=== PATIENT | male | born 1985 | race Caucasian/White ===

== ENCOUNTER 2016-11-23 07:08 | Emergency (ER) | payer SELFPAY ==
[2016-11-23] MEDS ORDERED: Nitroglycerin TAB 0.4 MG* 0.4 MG TAB SL ONE (07:26)
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
[2016-11-23] MEDS ORDERED: Aspirin Low Dose CHEW TAB* 81 MG PO ONE (07:38)
[2016-11-23 07:57] VITALS: BP 154/92
[2016-11-23] MEDS ORDERED: Aspirin Low Dose CHEW TAB* 81 MG PO SCH (09:00)
== END 2016-11-23 07:54 | disposition short-term general hospital (02) ==
LOC: UCEAST 07:08
DX: R07.89 Other chest pain (principal); I50.9 Heart failure, unspecified; I45.10 Unspecified right bundle-branch block; I10 Essential (primary) hypertension; F17.210 Nicotine dependence, cigarettes, uncomplicated
CPT/HCPCS: 93005; 99213; A9270-GY; G0463

== ENCOUNTER 2016-11-23 08:13 | Emergency (ER) | payer MEDICAID ==
[2016-11-23] MEDS ORDERED: Metoprolol Tartrate TAB* 25 MG PO ONE (09:41)
[2016-11-23] MEDS ORDERED: Ketorolac INJ* 30 MG/ML 1 ML VIAL IV PUSH ONE (09:41)
[2016-11-23 09:48] LABS: Hematocrit 39 % (42-52); Hemoglobin 13.2 g/dl (14.0-18.0); Mean Corpuscular HGB Conc 34 g/dl (31-36); Mean Corpuscular Hemoglobin 28 pg (27-31); Mean Corpuscular Volume 84 fL (80-94); Mean Platelet Volume 8 um3 (7.4-10.4); Red Blood Count 4.66 10^6/ul (4.0-5.4); Red Cell Distribution Width 15 % (10.5-15); White Blood Count 9.5 10^3/ul (3.5-10.8)
[2016-11-23 10:00] LABS: Troponin I 0.01 ng/mL (<0.04)
[2016-11-23 10:01] LABS: Albumin 4.3 g/dL (3.2-5.2); BUN/Creatinine Ratio 18.7 (8-20); Calcium 9.4 mg/dL (8.6-10.3); EGFR African American 124.2 (>60); EGFR Non-African American 96.6 (>60); Globulin 3.4 g/dL (2-4); Potassium 3.6 mmol/L (3.5-5.0); Total Bilirubin 0.7 mg/dL (0.2-1.0); Total Protein 7.7 g/dL (6.4-8.9)
[2016-11-23] MEDS ORDERED: Iohexol 350* (CONTRAST) 500 ML MDV IV ONE (10:34)
--- NOTE | 2016-11-23 10:37 | RAD ---
Indication: Chest pain. History of congestive heart failure and asthma. Comparison: January 25, 2015 chest radiograph. June 15, [address] June 15, 2010 chest radiograph. Technique: Upright AP 0950 hours Report: 1.5 cm irregularly margined density at the LEFT upper lung zone corresponds to costochondral calcification based on correlation with prior CT without concern. No pulmonary infiltrate, pleural effusion, pneumothorax. The heart, pulmonary vasculature, and mediastinal contours are unremarkable. IMPRESSION: No evidence for acute intrathoracic disease.
--- NOTE | 2016-11-23 10:55 | RAD ---
INDICATION: Chest pain. Short of breath. Evaluate for pulmonary embolus. COMPARISON: CTA chest June 15, 2010 TECHNIQUE: Axial source images were obtained from the thoracic inlet to the hemidiaphragms following administration of [address] angiographic technique was utilized. Coronal and sagittal reconstructed images were acquired. CHEST FINDINGS: Neck/thyroid: The visualized neck to include the thyroid appear normal. Chest wall: There are no acute abnormalities of the bony thorax or chest wall. There is no supraclavicular, infraclavicular, or axillary lymphadenopathy. Lungs : There are no pulmonary parenchymal masses or infiltrates. The pulmonary interstitium appears normal. There are no endobronchial lesions. Cardiomediastinal structures: There is adequate opacification of the pulmonary arterial tree. There is no CT evidence of acute pulmonary embolic disease. The heart is normal in size. There is no pericardial effusion. There is no evidence of aortic aneurysm or dissection. There is no mediastinal or hilar adenopathy. The esophagus appears normal. Pleura : There are no pleural-based masses or effusions. Other: There is an estimated 70% diameter stenosis of the proximal left renal artery. The kidneys are symmetric in size and there is prompt perfusion of each kidney. IMPRESSION: 1. No CT evidence of acute pulmonary embolic disease. Lungs clear. 2. Incidental finding of estimated 70% diameter stenosis proximal left renal artery
[2016-11-23] MEDS ORDERED: Lisinopril TAB* 10 MG PO ONE (11:20)
[2016-11-23] MEDS ORDERED: Lisinopril TAB* 10 MG ONE (11:33)
[2016-11-23 14:17] VITALS: BP 110/80
[2016-11-24 10:12] LABS: Call Hep C TO BE CALLED
--- NOTE | 2016-11-26 18:37 | ED ---
Teodoro Rivera Billy, scribed for Joe King MD on 11/23/16 at 0928 . HPI Chest Pain - HPI Summary HPI Summary: Patient is a 31 year-old male coming to [facility] from [facility] for evaluation of constant left-sided chest tightness radiating to the left armpit since 0530 today. He states that the tightness is reproducible when moving the left arm and with palpation. He also reports mild shortness of breath. Denies any calf pain or swelling. Patient denies any dizziness at this time. However, he states that about 1 week ago, he had an episode where he had a "panic attack," felt dizzy, and fell to the ground and had convulsions without any LOC. He also had similar chest tightness at that time, which lasted for 2 hours before spontaneously resolving after sleep. He has felt fatigued for the last 2 months. He reports that he had intercourse this morning at 0430. He also notes that he has been experiencing unusual erectile dysfunction in the last 2 months. Denies any recent travel. Patient is a smoker and admits to former heroin, cocaine, and methamphetamine use, although he denies drug use in the last 6 months. - History of Current Complaint Chief Complaint: EDChestPainROMI Time Seen by Provider: 11/23/16 08:15 Hx Obtained From: Patient Onset/Duration: Started Hours Ago Time of Onset: 05:30 Timing: Constant Initial Severity: Moderate Current Severity: Moderate Pain Intensity: 1 Pain Scale Used: 0-10 Numeric Chest Pain Location: Left Anterior Chest Pain Radiates: Yes Chest Pain Radiates To:: Other - left armpit Character: Tightness Aggravating Factor(s): Movement, Other: - palpation Alleviating Factor(s): Nothing Associated Signs and Symptoms: Positive: Chest Pain, Shortness of Breath - mild. Negative: Dizziness, Calf Pain/Swelling - Allergy/Home Medications Allergies/Adverse Reactions: Allergies Allergy/AdvReac Type Severity Reaction Status Date / Time No Known Allergies Allergy Verified 11/25/15 12:53 PMH/Surg Hx/FS Hx/Imm Hx Endocrine/Hematology History: Denies: Hx Diabetes, Hx Thyroid Disease Cardiovascular History: Reports: Hx Congestive Heart Failure Denies: Hx Hypertension Respiratory History: Reports: Hx Asthma - as a child Denies: Hx Chronic Obstructive Pulmonary Disease (COPD) GI History: Denies: Hx Ulcer - Surgical History Surgery Procedure, Year, and Place: 2013 vasectomy Infectious Disease History: No Infectious Disease History: Denies: Hx Clostridium Difficile, Hx Hepatitis, Hx Human Immunodeficiency Virus (HIV), Hx of Known/Suspected MRSA, Hx Shingles, Hx Tuberculosis, Hx Known/ Suspected VRE, Hx Known/Suspected VRSA, History Other Infectious Disease, Traveled Outside the [place] in Last 30 Days - Family History Known Family History: Positive: Cardiac Disease - Social History Alcohol Use: Rare Substance Use Type: Reports: None Substance Use Comment - Amount & Last Used: last use of heroin may 01, 2016 Smoking Status (MU): Heavy Every Day Tobacco Smoker Type: Cigarettes Amount Used/How Often: 1 ppd Length of Time of Smoking/Using Tobacco: 13 years Have You Smoked in the Last Year: Yes Review of Systems Positive: Fatigue Negative: Erythema Negative: Sore Throat Positive: Chest Pain Positive: Shortness Of Breath. Negative: Cough Negative: Abdominal Pain, Vomiting, Nausea Negative: dysuria, hematuria Negative: Myalgia, Edema Negative: Rash All Other Systems Reviewed And Are Negative: Yes Physical Exam - Summary Physical Exam Summary: Constitutional: Well-developed, Well-nourished, Alert. (-) Distressed Skin: Warm, Dry HENT: Normocephalic; Atraumatic Eyes: Conjunctiva normal Neck: Musculoskeletal ROM normal neck. (-) JVD, (-) Stridor, (-) Tracheal deviation Cardio: Rhythm regular, rate normal, Heart sounds normal; Intact distal pulses; The pedal pulses are 2+ and symmetric. Radial pulses are 2+ and symmetric. (-) Murmur Pulmonary/Chest wall: Effort normal. There is tenderness to the left lateral third, fourth, and fifth ribs. (-) Respiratory distress, (-) Wheezes, (-) Rales Abd: Soft, (-) Tenderness, (-) Distension, (-) Guarding, (-) Rebound Musculoskeletal: (-) Edema Lymph: (-) Cervical adenopathy Neuro: Alert, Oriented x3 Psych: Mood and affect Normal Triage Information Reviewed: Yes Vital Signs On Initial Exam: Initial Vitals Temp Pulse Resp BP Pulse Ox 99 F 76 9 142/97 98 11/23/16 08:14 11/23/16 08:14 11/23/16 08:14 11/23/16 08:14 11/23/16 08:14 Vital Signs Reviewed: Yes - [place] Coma Scale Coma Scale Total: 15 Diagnostics - Vital Signs Vital Signs Temp Pulse Resp BP Pulse Ox 11/23/16 08:16 99 F 83 16 144/91 99 11/23/16 08:14 99 F 76 9 142/97 98 - Laboratory Result Diagrams: 11/23/16 07:35 11/23/16 07:35 Lab Statement: Any lab studies that have been ordered have been reviewed, and results considered in the medical decision making process. - Radiology CXR Xray Interpretation: No Acute Changes Radiology Interpretation Completed By: Radiologist - CT CTA chest/thorax CT Interpretation Completed By: Radiologist - 1. No CT evidence of acute pulmonary embolic disease. Lungs clear. 2. Incidental finding of estimated 70% diameter stenosis proximal left renal artery - EKG 0810 EKG Interpretation: NSR 78 bpm, no STEMI 1121 EKG Interpretation: NSR 66 bpm, no STEMI Re-Evaluation - Re-Evaluation First Eval Re-Evaluation Time: 14:07 Comment: Labs and imaging reviewed. Plan for discharge and follow-up with PCP, cardiology, and nephrology discussed with the patient. He voiced an understanding. Chest Pain Course/Dx - Course Assessment/Plan: This patient is a 31 year-old male coming to the ED for evaluation of chest tightness. EKG shows NSR with no STEMI. CXR shows no acute disease. CTA of the chest shows no acute findings and an incidental finding of 70% diameter stenosis proximal left renal artery. Troponin #1 was 0.01 in the ED. Troponin #2 was 0.00. Patient will be discharged home to follow up with the [facility] physician referral service, cardiology, and nephrology. - Diagnoses Provider Diagnoses: Renal artery stenosis, Hypertension, reproducible chest pain, Erectile dysfunction - Provider Notifications Discussed Care Of Patient With: Abilio Allison NP (hospitalist) at 1130: patient will follow up with PCP Discharge - Discharge Plan Condition: Stable Disposition: HOME Prescriptions: Lisinopril TAB* [Prinivil TAB 5 MG*] 5 mg PO DAILY #14 tab Patient Education Materials: Chest Pain (ED) Forms: *Work Release Referrals: [facility] PHYSICIAN REFERRAL [Outside] Suze Hernandez MD [Medical Doctor] - Jermaine Heredia MD [Medical Doctor] - Additional Instructions: FOLLOW UP WITH THE PHYSICIAN REFERRAL SERVICE. IF YOU CANNOT BE SEEN IN THE NEXT THREE DAYS, VISIT THE [facility]. ADDITIONALLY, FOLLOW UP WITH DR. HEREDIA (NEPHROLOGY) AND DR. HERNANDEZ ( CARDIOLOGY). The documentation as recorded by the Teodoro lombardo Billy accurately reflects the service I personally performed and the decisions made by me, Joe King MD.
== END 2016-11-23 14:22 | disposition home or self-care (01) ==
LOC: ED 08:13
DX: I70.1 Atherosclerosis of renal artery (principal); I10 Essential (primary) hypertension; R07.9 Chest pain, unspecified; N52.9 Male erectile dysfunction, unspecified; I50.9 Heart failure, unspecified; F17.210 Nicotine dependence, cigarettes, uncomplicated
CPT/HCPCS: 36415; 71010; 71275; 80053; 80074; 83880; 84484; 85025; 86703; 93005; 99285; A9270-GY; J1885; Q9967

== ENCOUNTER 2016-12-01 20:04 | Emergency (ER) | payer MEDICAID ==
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
[2016-12-01] MEDS ORDERED: Tetan/Diph/Pertus SYR(Tdap)* 0.5 ML SYR(BOOSTRIX) use SYR IM ONE (21:36)
[2016-12-01] MEDS ORDERED: Morphine INJ* 4 MG/ML 1 ML SYRINGE IV ONE (22:04)
[2016-12-02 02:39] VITALS: BP 134/84
== END 2016-12-01 23:30 | disposition short-term general hospital (02) ==
LOC: ED 20:04
DX: T23.291A Burn of second degree of multiple sites of right wrist and hand, initial encounter (principal); T23.292A Burn of second degree of multiple sites of left wrist and hand, initial encounter; X08.8XXA Exposure to other specified smoke, fire and flames, initial encounter; Y92.9 Unspecified place or not applicable; I50.9 Heart failure, unspecified; Z23 Encounter for immunization; F17.210 Nicotine dependence, cigarettes, uncomplicated
CPT/HCPCS: 90471; 90715; 99283; J2270

== ENCOUNTER 2017-01-11 10:31 | Emergency (ER) | payer OTHER ==
--- NOTE | 2017-01-11 13:17 | UC ---
Throat Pain/Nasal Vinicio HPI - HPI Summary HPI Summary: Patient presents with low grade temp and sore throat x 6 days. He denies sick contacts. Denies cough, chest pain and pressure. He notes to using tylenol without relief of pain. Denies skin complaints or abdominal pain. Smoker. Otherwise healthy. Takes no medications and denies allergies. Denies difficultly swallowing or breathing. Pain does not radiate. - History of Current Complaint Chief Complaint: UCRespiratory Stated Complaint: SORE THROAT Time Seen by Provider: 01/11/17 12:30 Hx Obtained From: Patient Onset/Duration: Sudden Onset Severity: Moderate Pain Intensity: 6 Pain Scale Used: 0-10 Numeric Associated Signs & Symptoms: Positive: Other - odynophagia Related History: Smoking - Epiglottits Risk Factors Epiglottis Risk Factors: Negative - Allergies/Home Medications Allergies/Adverse Reactions: Allergies Allergy/AdvReac Type Severity Reaction Status Date / Time No Known Allergies Allergy Verified 01/11/17 10:45 PMH/Surg Hx/FS Hx/Imm Hx Previously Healthy: Yes Other History Of: Negative For: Hepatitis C - unknown for pt, with hep C - Surgical History Surgical History: Yes Surgery Procedure, Year, and Place: 2013 vasectomy - Family History Known Family History: Positive: Cardiac Disease - Social History Occupation: Employed Full-time Lives: With Family Alcohol Use: Rare Substance Use Type: None Substance Use Comment - Amount & Last Used: last use of heroin may 01, 2016 Smoking Status (MU): Heavy Every Day Tobacco Smoker Type: Cigarettes Amount Used/How Often: 1 ppd Length of Time of Smoking/Using Tobacco: 13 years Have You Smoked in the Last Year: Yes When Did the Patient Quit Smoking/Using Tobacco: 2 weeks ago Review of Systems Constitutional: Negative Skin: Negative Eyes: Negative ENT: Sore Throat Respiratory: Negative Cardiovascular: Negative Motor: Negative Neurovascular: Negative Musculoskeletal: Negative Neurological: Negative All Other Systems Reviewed And Are Negative: Yes Physical Exam Triage Information Reviewed: Yes Appearance: Well-Appearing, No Pain Distress, Well-Nourished Vital Signs: Initial Vital Signs Temp 98.2 F 01/11/17 10:42 Pulse Ox 98 01/11/17 10:42 Vital Signs Reviewed: Yes Eye Exam: Normal Eyes: Positive: Conjunctiva Clear ENT: Positive: Pharyngeal erythema, Tonsillar swelling, Tonsillar exudate Dental Exam: Normal Neck exam: Normal Neck: Positive: Supple, Nontender, No Lymphadenopathy Respiratory Exam: Normal Respiratory: Positive: Chest non-tender, Lungs clear Cardiovascular Exam: Normal Cardiovascular: Positive: RRR Musculoskeletal Exam: Normal Musculoskeletal: Positive: Strength Intact Neurological Exam: Normal Neurological: Positive: Alert Psychological: Positive: Normal Response To Family, Age Appropriate Behavior Skin Exam: Normal Throat Pain/Nasal Course/Dx - Course Course Of Treatment: Rapid strep positive. Penicillin given for rx. Encouraged cepacol tabs. Patient OK with discharge. Afebrile. - Differential Dx/Diagnosis Differential Diagnosis/HQI/PQRI: Laryngitis, Pharyngitis, Tonsillitis, URI Provider Diagnoses: STREP THROAT Discharge - Discharge Plan Condition: Stable Disposition: HOME Prescriptions: Penicillin VK TAB 500 MG(NF) [Penicillin VK 500 mg Tab(NF)] 500 mg PO BID #20 tab MDD 4 Patient Education Materials: Strep Throat (ED) Referrals: Yaw Bullock MD [Primary Care Provider] - Additional Instructions: Dx: Strep Throat You will need antibiotic medicine to treat your strep throat. Please take the antibiotic as directed. You should feel better within 2 to 3 days after you start antibiotics. You may return to work or school 24 hours after you start antibiotics. If you have any questions about your medications, please do no hesitate to call or talk with your pharmacist. How can I manage my symptoms? Use lozenges, ice, soft foods, or popsicles to soothe your throat. Drink juice, milk shakes, or soup if your throat is too sore to eat solid food. Drinking liquids can also help prevent dehydration. Gargle with salt water. Mix teaspoon salt in a 1 cup of warm water and gargle. This may help reduce swelling in your throat. Do not smoke. Nicotine and other chemicals in cigarettes and cigars can cause lung damage and make your symptoms worse. Ask your healthcare provider for information if you currently smoke and need help to quit. E-cigarettes or smokeless tobacco still contain nicotine. Talk to your healthcare provider before you use these products. How do I prevent the spread of strep throat? Wash your hands often. Use soap and water. Wash your hands after you use the bathroom, change a child's diapers, or sneeze. Wash your hands before you prepare or eat food. Do not share food or drinks. Replace your toothbrush after you have taken antibiotics for 24 hours.
== END 2017-01-11 12:49 | disposition home or self-care (01) ==
LOC: UCEAST 10:31
DX: J02.0 Streptococcal pharyngitis (principal); F17.210 Nicotine dependence, cigarettes, uncomplicated
CPT/HCPCS: 87651; 99212; G0463

== ENCOUNTER 2017-02-17 13:45 | Inpatient (IN) | payer OTHER ==
[2017-02-17] MEDS ORDERED: cefTRIAXone(*) 1 GM in NS 0.9% 50 ML* 50 ML IVPB ONE (15:39)
[2017-02-17] MEDS ORDERED: Acetaminophen TAB* 325 MG PO ONE ×2 (15:39→17:02)
[2017-02-17] MEDS ORDERED: NS 0.9% 1000 ML* 1,000 ML IV ONE ×2 (15:39→17:44)
[2017-02-17] MEDS ORDERED: Ketorolac INJ* 30 MG/ML 1 ML VIAL IV ONE (15:39)
--- NOTE | 2017-02-17 16:02 | RAD ---
Indication: Fever and dizziness for 3 days post camping trip. Comparison: November 23, 2016 CT and portable chest radiograph.. Technique: Upright AP 1600 hours Report: Costochondral calcification noted at the LEFT first rib. Clear lungs and pleural spaces. Negative for pneumothorax. The heart, pulmonary vasculature, and mediastinal contours are unremarkable. IMPRESSION: No evidence for acute intrathoracic disease.
[2017-02-17 16:18] LABS: Hematocrit 40 % (42-52); Hemoglobin 13.3 g/dl (14.0-18.0); Mean Corpuscular HGB Conc 33 g/dl (31-36); Mean Corpuscular Hemoglobin 28 pg (27-31); Mean Corpuscular Volume 83 fL (80-94); Mean Platelet Volume 8 um3 (7.4-10.4); Red Blood Count 4.79 10^6/ul (4.0-5.4); Red Cell Distribution Width 16 % (10.5-15)
--- NOTE | 2017-02-17 16:33 | RAD ---
HISTORY: Fever, dizziness COMPARISONS: July 08, 2011 TECHNIQUE: Multiple contiguous axial CT scans were obtained of the head without intravenous contrast. FINDINGS: HEMORRHAGE/INFARCT: There is no hemorrhage or acute infarct. MASSES/SHIFT: There is no mass or shift. EXTRA-AXIAL SPACES: There are no extra-axial fluid collections. SULCI AND VENTRICLES: The sulci and ventricles are normal in size and position for the patient's stated age. CEREBRUM: There are no focal parenchymal abnormalities. BRAINSTEM: There are no focal parenchymal abnormalities. CEREBELLUM: There are no focal parenchymal abnormalities. VESSELS: The vessels are grossly normal. PARANASAL SINUSES: The paranasal sinuses are clear. ORBITS: The orbits are unremarkable. BONES AND SOFT TISSUE: No bone or soft tissue abnormalities are noted. OTHER: None IMPRESSION: NO ACUTE INTRACRANIAL PATHOLOGY.
[2017-02-17 16:41] LABS: Albumin 3.9 g/dL (3.2-5.2); BUN/Creatinine Ratio 10.5 (8-20); C Reactive Protein 194.29 mg/L (< 5.00); Calcium 9.5 mg/dL (8.6-10.3); EGFR African American 105.3 (>60); EGFR Non-African American 81.9 (>60); Globulin 4.8 g/dL (2-4); Potassium 3.6 mmol/L (3.5-5.0); Total Bilirubin 0.7 mg/dL (0.2-1.0); Total Protein 8.7 g/dL (6.4-8.9)
[2017-02-17 17:33] LABS: Urine Bacteria Absent (Absent); Urine Bilirubin Negative (Negative); Urine Glucose Negative (Negative); Urine Nitrite Negative (Negative)
[2017-02-17 17:49] LABS: Erythrocyte Sed Rate 77 mm/Hr (0-14)
[2017-02-17 17:56] LABS: Benzodiazepine Urine Screen None Detected (None Detect)
[2017-02-17] MEDS ORDERED: Vancomycin(*) 1,000 MG in NS 0.9% 250 ML* 250 ML IVPB ONE (18:00)
[2017-02-17] MEDS: NS 0.9% 1000 ML* 1,000 ML IV SCH (20:10)
[2017-02-17] MEDS: DOXYcycline IV* 100 MG in NS 0.9% 250 ML* 250 ML IVPB SCH (20:11)
--- NOTE | 2017-02-17 21:59 | HP ---
CC: Yaw Bullock MD * HISTORY AND PHYSICAL: DATE OF ADMISSION: 02/17/17 PRIMARY CARE PHYSICIAN: Dr. Yaw Bullock. ATTENDING PHYSICIAN: Dr. Dickson Rendon * (dictated by Kaye Enrique NP). CHIEF COMPLAINT: Fever and chills for 3 to 4 days. HISTORY OF PRESENT ILLNESS: Mr. Gudino is a 31-year-old male with a past medical history significant for congestive heart failure, asthma, renal artery stenosis, and history of hepatitis C, who presents to the emergency room with complaints of not feeling well for 3 to 4 days. The patient states that he was recently camping, had been swimming in a [place] and had gotten into some poison jesus manuel with 2 small areas on his right arm and leg. He states that he has not felt well since. He denies any other contacts with similar symptoms. The patient reports fever, chills, and lightheadedness. He denies any chest pain, shortness of breath, cough, or urinary symptoms. The patient is unaware of any tick bites. He denies recent IV drug use. Based off the concern for the patient's symptoms, he presented to the emergency room for further evaluation. While in the emergency room, the patient was noted to be febrile with a temperature up to 102. He had labs that were significant for white blood cell count of 20. He had an ESR of 77, a CRP of 194.29, procalcitonin of 0.70, a fibrinogen of 538. He also had an EKG showing a sinus tachycardia. Chest x- ray showing no intrathoracic disease and a head CT showing no intracranial pathology. Based off the concern for the patient's presentation with fever and generally not feeling well, the Hospitalists were asked evaluate the patient for admission. PAST MEDICAL HISTORY: 1. Congestive heart failure. 2. Asthma. 3. Renal artery stenosis. 4. History of hepatitis C. PAST SURGICAL HISTORY: Status post vasectomy in 2012. HOME MEDICATIONS: Includes lisinopril 5 mg oral daily. ALLERGIES: No known drug allergies. FAMILY HISTORY: The patient reports a family history of myocardial infarction in his grandfather in his 60s and grandmother in her 60s. The patient denies any family history of diabetes mellitus. The patient's great grandmother had a history of lung cancer. SOCIAL HISTORY: The patient is approximately a pack a day smoker for the last 13 years. He rarely drinks alcohol. 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 His father, Murali Gudino, will be his surrogate decision maker makers in the event that he is unable to make decisions for himself. REVIEW OF SYSTEMS: I performed a 14-point review of systems. All the pertinent positives and negatives are mentioned in the history of present illness. The remaining review of systems is negative. PHYSICAL EXAMINATION GENERAL APPEARANCE: The patient is alert, pleasant, appears to be in no acute distress. VITAL SIGNS: Temperature 100.4, heart rate 107, respiratory rate 16, O2 sat 97 % on room air, blood pressure 126/60. HEENT: Normocephalic, atraumatic. Pupils are equal and reactive to light. Extraocular movements are intact. RESPIRATORY: There is no accessory muscle use. Lungs are clear to auscultation bilaterally. CARDIOVASCULAR: S1 and S2 present. Tachycardiac. There are no murmurs, rubs, or gallops heard. ABDOMEN: Soft, nontender, nondistended. There are bowel sounds present x4. EXTREMITIES: There is no lower extremity edema. DP and PT pulses are 2+ and symmetric. MUSCULOSKELETAL: There is no clubbing or cyanosis noted. The patient exhibits good strength in all extremities. NEUROLOGICAL: The patient is alert and oriented x4. Cranial nerves II through XII are grossly intact. PSYCHOLOGICAL: The patient is calm and cooperative. SKIN: The patient has a large birthmark to his left thigh. On his right arm, near his elbow and on his right fontaine, he has small areas of linear rash. DIAGNOSTIC STUDIES/LABORATORY DATA: Sodium 136, potassium 3.6, chloride 100, CO2 27, BUN 11, creatinine 1.05, glucose 111. White blood cell count 20, hemoglobin 13.3, hematocrit 40, and platelet count 245. ESR 77, fibrinogen 538 , CRP 194.29, and procalcitonin 0.70. EKG shows a sinus tachycardia with a rate of 104 and incomplete right bundle- branch block. When compared to previous EKG from 11/23/16, this EKG is similar with the exception at that time, it was sinus rhythm. Chest x-ray from today. Radiologist's impression, no intrathoracic disease. Brain CT from today. Radiologist impression, no intracranial pathology. IMPRESSION: Mr. Gudino is a 31-year-old male with past medical history significant for congestive heart failure, asthma, renal artery stenosis, and hepatitis C, who presents to the emergency room with complaints of fever and generally not feeling well. He will be admitted as an observation for fever. ASSESSMENT: 1. Fever: Unclear etiology at this time. The patient's chest x-ray is clear. His urinalysis does not appear to be dirty and is absent for bacteria. Differentials include viral syndrome or Lyme disease. The patient had blood cultures drawn while in the emergency room, that are pending. He will receive IV fluids. We will place him on doxycycline to cover possibility of Lyme disease and we will send Lyme serology. The patient is meeting sepsis criteria with fever, tachycardia, and elevated white count. The patient is not meeting qSOFA criteria on admission. He is nontoxic appearing at this time. 2. Hypertension: We will continue the patient's lisinopril. 3. History of congestive heart failure: We will cautiously give IV fluids and monitor his cardiopulmonary status. 4. Fluids, electrolytes, and nutrition. The patient will be on a regular diet. 5. Code status: Full code. 6. DVT prophylaxis. The patient is at low risk and will be encouraged to ambulate. 7. Disposition: Observation. TIME SPENT: Time for this admission was 45 minutes, greater than half of that was spent face to face with the patient and family discussing medications, past medical history, and events leading up to his arrival today and performing the physical examination. The case has been reviewed with the attending, Dr. Rendon, who agrees with the plan of care. Reviewed by ROME SALMON 02/24/17 1412 [id number]/[facility] #: [id number] [place]
[2017-02-18] MEDS: NS 0.9% 1000 ML* 1,000 ML IV SCH ×2 (06:17→20:06)
[2017-02-18 06:19] LABS: Hematocrit 35 % (42-52); Hemoglobin 11.4 g/dl (14.0-18.0); Mean Corpuscular HGB Conc 33 g/dl (31-36); Mean Corpuscular Hemoglobin 28 pg (27-31); Mean Corpuscular Volume 84 fL (80-94); Mean Platelet Volume 9 um3 (7.4-10.4); Red Blood Count 4.14 10^6/ul (4.0-5.4); Red Cell Distribution Width 16 % (10.5-15); White Blood Count 14.5 10^3/ul (3.5-10.8)
[2017-02-18] MEDS ORDERED: Vancomycin per Pharmacy* NOTE FOLLOW UP PRN (06:22)
[2017-02-18] MEDS ORDERED: Vancomycin 1500 MG IV - x ONCE IVPB ONE ×2 (06:30)
[2017-02-18 06:33] LABS: BUN/Creatinine Ratio 18.5 (8-20); EGFR Non-African American 142.4 (>60); Potassium 3.9 mmol/L (3.5-5.0)
[2017-02-18 06:34] LABS: Calcium 8.2 mg/dL (8.6-10.3); EGFR African American 183.1 (>60)
--- NOTE | 2017-02-18 07:46 | PN ---
Subjective Date of Service: 02/18/17 Interval History: Mr. Gudino complains of about 2-3 days of left knee pain. He denies other complaint including chest pain, SOB, nausea, or abdominal pain. He states that his last injection drug use was last year. He denies any known history of blood stream infections in the past. Objective Active Medications: Acetaminophen (Tylenol Tab*) 650 mg PO Q4H PRN Sodium Chloride (Ns 0.9% 1000 Ml*) 1,000 mls @ 100 mls/hr IV PER RATE [facility] Doxycycline Hyclate 100 mg/ (Sodium Chloride) 250 mls @ 250 mls/hr IVPB Q12H [facility] Vancomycin HCl 1,500 mg/ (Sodium Chloride) 250 mls @ 166.667 mls/hr IVPB ONCE ONE Lisinopril (Prinivil Tab*) 5 mg PO DAILY [facility] Pharmacy Consult (Vancomycin Per Pharmacy*) 1 note FOLLOW UP . PRN Vital Signs 02/17/17 02/17/17 02/17/17 17:30 17:39 17:59 Temperature 100.4 F Pulse Rate 106 107 Respiratory 28 16 Rate Blood Pressure 126/60 126/60 (mmHg) O2 Sat by Pulse 97 98 Oximetry 02/17/17 02/17/17 02/17/17 18:18 18:22 18:58 Temperature 99.8 F 99.8 F Pulse Rate 54 93 Respiratory 18 Rate Blood Pressure 94/56 94/43 112/56 (mmHg) O2 Sat by Pulse 96 98 Oximetry 02/17/17 02/18/17 02/18/17 20:09 00:07 00:11 Temperature 97.5 F 97.3 F Pulse Rate 72 54 76 Respiratory 24 16 Rate Blood Pressure 107/46 86/55 92/48 (mmHg) O2 Sat by Pulse 100 99 Oximetry 02/18/17 02/18/17 04:16 07:19 Temperature 98.1 F 97.6 F Pulse Rate 82 79 Respiratory 16 14 Rate Blood Pressure 98/53 107/52 (mmHg) O2 Sat by Pulse 98 99 Oximetry Oxygen Devices in Use Now: None Appearance: Male lying in bed in NAD Eyes: No Scleral Icterus Ears/Nose/Mouth/Throat: NL Teeth, Lips, Gums Neck: Trachea Midline Respiratory: Symmetrical Chest Expansion and Respiratory Effort, Clear to Auscultation Cardiovascular: NL Sounds; No Murmurs; No JVD, No Edema Abdominal: NL Sounds; No Tenderness; No Distention Lymphatic: No Cervical Adenopathy Extremities: - - No swelling or redness of left knee but is very tender to medial side, pain with ROM Skin: No Rash or Ulcers Neurological: Alert and Oriented x 3, NL Muscle Strength and Tone Nutrition: Taking PO's Result Diagrams: 02/18/17 06:00 02/18/17 05:25 Assess/Plan/Problems-Billing Assessment: Mr. Gudino is a 31 yo male with a PMH of HTN who was admitted on 02/17/17 with acute febrile illness. - Patient Problems (1) Fever Comment: - Fever resolved. Leukocytosis resolving. ESR and CRP elevated on arrival. - Blood cultures positive for MRSA overnight. - Patient has history of heroin abuse in the past but does deny recent injections. - Continue vancomycin. - Appreciate ID consult, continue vancomycin. - Ortho consult pending, Dr. Hein has recommended an xray of left knee. - Plan to transthoracic echo, if negative will need transesophagel echo per ID. (2) Hypertension Comment: - SBP 80-110s. - Hold lisinopril. (3) Full code status (4) DVT prophylaxis Comment: - Heparin SQ. Status and Disposition: Switch to inpatient status with MRSA bacteremia.
[2017-02-18] MEDS ORDERED: Lisinopril TAB* 5 MG PO SCH (09:00)
[2017-02-18] MEDS: DOXYcycline IV* 100 MG in NS 0.9% 250 ML* 250 ML IVPB SCH (09:36)
[2017-02-18] MEDS: Acetaminophen TAB* 325 MG PO PRN ×2 (10:00→21:25)
[2017-02-18] MEDS: Nicotine PATCH 21 MG/24 HR* PATCH TRANSDERM SCH (10:26)
--- NOTE | 2017-02-18 11:32 | PN ---
Progress Note - Progress Note Date of Service: 02/18/17 SOAP: entered in error
--- NOTE | 2017-02-18 14:10 | RAD ---
INDICATION: Left knee pain, MRSA bacteremia. TECHNIQUE: 2 views of the left knee were obtained. FINDINGS: The bones are in normal alignment. There is a small joint effusion present. No significant focal osseous abnormality is seen. Joint spaces appear maintained. IMPRESSION: SMALL JOINT EFFUSION.
[2017-02-18] MEDS: Heparin VIAL(*) 5000 UNITS/ML VIAL (FIVE THOUSAND) SUBCUT SCH ×2 (14:13→21:22)
[2017-02-18] MEDS: Vancomycin(*) 1,250 MG in NS 0.9% 250 ML* 250 ML IVPB SCH ×2 (16:02→23:48)
--- NOTE | 2017-02-18 16:33 | CONS ---
CONSULTATION REPORT: DATE OF CONSULT: 02/18/17 REQUESTING PROVIDER: Maye Mancilla NP CONSULTING SERVICE: Infectious Disease. REASON FOR CONSULT: Staph bacteremia. IMPRESSION: 1. Gram-positive cocci in clusters in 4/4 blood cultures bottles in the setting of fever. The PCR is Staphylococcus aureus and methicillin-resistant Staphylococcus aureus positive. There is an occasional methicillin-resistant Staphylococcus aureus false positive, but undoubtedly this is Staphylococcus aureus. 2. Left knee pain with small effusion and guarding, high suspicion for septic joint. 3. History of injection drug use, so an infective endocarditis is on the differential as well. RECOMMENDATIONS: 1. Include vancomycin goal trough 15 to 20, we will recheck the blood cultures tomorrow. Check an HIV antibody. 2. If the transthoracic echocardiogram is negative, please attempt transesophageal echocardiogram. Orthopedic evaluation of the left knee for consideration of aspiration of the joint. HISTORY OF PRESENT ILLNESS: This is a 31-year-old man with 4 days of fever, chills, sweats, decreased appetite, fatigue. It came on suddenly on Tuesday. He has not had anything like this in the past. He has no chest pain or cough. He has no back pain, but he does have left knee pain, which has been there for about 3 days, worse with weightbearing or moving it. He does not like to flex the joint. There is no abdominal pain or diarrhea. He has no prosthetic material present. He had a fever of 39.5 overnight. He has been on vancomycin since yesterday, blood cultures came back 11/[address] of the brain was unremarkable in the ER yesterday. Chest x-ray was negative for acute intrathoracic disease. PAST MEDICAL HISTORY: 1. Congestive heart failure. 2. Asthma. 3. Renal artery stenosis. 4. History of hepatitis C. 5. Status post vasectomy in 2012. MEDICATIONS: 1. Tylenol. 2. Heparin subcutaneous injection. 3. Nicotine patch. 4. Vancomycin 1250 mg every 8 hours. ALLERGIES: No known drug allergies. SOCIAL HISTORY: He lives outside of [place] with his girlfriend. No travel. He had stopped injecting drugs about a year ago. No sick contacts. REVIEW OF SYSTEMS: All negative to full review of systems except as noted above. PHYSICAL EXAM: Vital Signs: Temperature is 36.4, heart rate 80, respiratory rate 14, blood pressure 107/52, O2 sat 99% on room air. General: He is awake, not in distress. HEENT: There is no conjunctival hemorrhage. Oropharynx without lesions. Neck: Supple without nuchal rigidity. Lymph Nodes: There is no cervical, supraclavicular, inguinal, axillary, or epitrochlear lymphadenopathy. Heart: Regular rate and rhythm without murmurs, rubs, or gallops. Lungs: Clear to auscultation bilaterally. Abdomen: Soft, nontender , and nondistended. There are bowel sounds present. Skin: There is no rash or splinter hemorrhages. Musculoskeletal: No spine tenderness to palpation. There is left knee mild warmth and small effusion with medial tenderness to palpation. He has guarding with flexion, which he can do, but it is quite painful. There is no other joint synovitis. LABORATORY DATA: White blood cell count 14, hemoglobin 11, platelets 167. Creatinine 0.6. CRP 195. Please see impressions and recommendations outlined above, which I have discussed with Maye Mancilla NP. Thank you for asking me to see Mr. Gudino in consultation. [id number]/[facility] #: [id number] [facility] CENTERAlex
--- NOTE | 2017-02-18 16:53 | ECHO ---
Patient: JAMES LALA [facility] Rec#: [id number] : 1985 Date: 02/18/2017 Age: 31y Height: 175.3 cm / 69.0 in Weight: 81.7 kg / 180.1 lbs Sex: M BSA: 2 Room#: [facility] Admit Date#: 02/18/2017 Type: Inpatient Referring: Maye Mancilla NP Reading: Jose Lopes DO Packaging Coordinator: Elisha Vivas RN RDCS CC: Ara DAVID,Leander Transthoracic Echocardiogram Indication: MRSA bacteremia BP: 107/52 HR: 72 Rhythm: NSR Findings History: CHF, ETOH use, HTN, asthma, smoker, heroin use, hepatitis C Technical Comments: The study quality is good. Completed at 1610. Left Ventricle: The left ventricular chamber size is normal. Mild concentric left ventricular hypertrophy is observed. Global left ventricular wall motion and contractility are within normal limits. Left ventricular systolic function is at the lower limits of normal. The estimated ejection fraction is 50-55%. Normal left ventricular diastolic filling is observed. Left Atrium: The left atrial chamber size is normal. Right Ventricle: The right ventricular chamber size and systolic function are within normal limits. Right Atrium: The right atrial cavity size is normal. There is evidence of an atrial septal aneurysm. Aortic Valve: The aortic valve is trileaflet. There is a trace of aortic regurgitation. There is no evidence of aortic stenosis. Mitral Valve: The mitral valve leaflets appear normal. There is trace to mild mitral regurgitation. There is no evidence of mitral stenosis. Tricuspid Valve: There is mild to moderate tricuspid regurgitation. The tricuspid regurgitant jet is eccentric. No pulmonary hypertension is noted. There is no tricuspid stenosis. A mass is visualized on the tricuspid valve which appears consistent with a vegetation.It appears to be on the septal leaflet but may also involve the posterior leaflet of the tricuspid valve. 0.8cm x 0.9cm Pulmonic Valve: The pulmonic valve appears normal. There is a trace pulmonic regurgitation. There is no pulmonic stenosis. Pericardium: There is no significant pericardial effusion. Aorta: There is no dilatation of the ascending aorta. There is no dilatation of the aortic arch. There is no dilation of the aortic root. Pulmonary Artery: The main pulmonary artery appears normal. Venous: The inferior vena cava is dilated. There is less than 50% respiratory change in the inferior vena cava dimension. Conclusions The left ventricular chamber size is normal. Mild concentric left ventricular hypertrophy is observed. Left ventricular systolic function is at the lower limits of normal. The estimated ejection fraction is 50-55%. The left atrial chamber size is normal. The right ventricular chamber size and systolic function are within normal limits. There is a subcentimeter echodensity attached to the tricuspid valve as described within the report associated with mild to moderate highly eccentric tricuspid regurgitation. In the setting of IVDA and bacteremia, this is consistent with infectious endocarditis. Compared to prior study from 06/2010, LVEF has improved from 30-35%, endocarditis is now present. Results discussed with Maye SHELTON at time of report Measurements Name Value Normal Range RVIDd (AP) 2D 2.8 cm (0.9 - 2.6) RVDdMajor (2D) 3.5 cm (2.2 - 4.4) RAd ISD 4CH 4.7 cm (3.4 - 4.9) RA (A4C)W 4.1 cm (2.9 - 4.6) IVSd (2D) 1.3 cm (0.6 - 1) LVPWd (2D) 1.3 cm (0.6 - 1) LVIDd (2D) 4.9 cm (3.6 - 5.4) LVIDs (2D) 3.4 cm - LV FS (2D) 30 % (25 - 45) Aortic Annulus 1.8 cm (1.4 - 2.6) Ao root diameter (2D) 2.5 cm (2.1 - 3.5) Ascending Ao 2.7 cm (2.1 - 3.4) Aortic arch 2.9 cm (1.8 - 3.4) LA dimension (AP) 2D 3.5 cm (2.3 - 3.8) LAd ISD 4CH 4.9 cm (2.9 - 5.3) LA ISD 4CH W 3.9 cm (2.5 - 4.5) Name Value Normal Range LA ESV SP 4CH (A/L) 49 ml - LA ESV SP 2CH (A/L) 68 ml - LA ESV BP (A/L) 59 ml - LA ESV BP (A/L) index 29.8 ml/m2 - LA ESV SP 4CH (MOD) 46 ml - LA ESV SP 2CH (MOD) 66 ml - Name Value Normal Range MV E-wave Vmax 1.1 m/sec - MV deceleration time 179 msec - MV A-wave Vmax 0.7 m/sec - MV E:A ratio 1.6 ratio - LV septal e' Vmax 0.12 m/sec - LV lateral e' Vmax 0.13 m/sec - LV E:e' septal ratio 9.2 ratio - LV E:e' lateral ratio 8.5 ratio - Name Value Normal Range AV Vmax 1.6 m/sec - AV VTI 30.8 cm - AV peak gradient 10 mmHg - AV mean gradient 6.4 mmHg - LVOT Vmax 1.3 m/sec - LVOT VTI 24.6 cm - LVOT peak gradient 6.7 mmHg - LVOT mean gradient 4 mmHg - BRIAN Vmax 1 m/sec - Name Value Normal Range TR Vmax 2.6 m/sec - TR peak gradient 27 mmHg - IVC diameter 2.5 cm - Name Value Normal Range PV Vmax 0.95 m/sec -
[2017-02-18] MEDS ORDERED: cefTRIAXone VIAL(*) 1,000 MG in NS 0.9% 50 ML* 50 ML IVPB SCH (17:00)
--- NOTE | 2017-02-18 19:43 | ED ---
Danielle Rivera Alfonso, scribed for Lucian Pulido MD on 02/17/17 at 1548 . HPI Febrile Illness - HPI Summary HPI Summary: This patient is a 31 year old M presenting to [facility] accompanied by yoly with a chief complaint of febrile illness since earlier today. Fiance reports the fever has been as high as 104.6. Pt was on abx recently for aspiration pneumonia. He rates the pain 0/10 in severity. Symptoms aggravated by nothing and alleviated by Tylenol. Pt reports cough, dizziness, tremors, rash, constipation, and loss of appetite. Pt denies headache, ear ache, neck pain, photophobia, and dysuria. Denies PMHx and PSHx, Tobbaco abuse disorder. - History of Current Complaint Chief Complaint: EDFever Time Seen by Provider: 02/17/17 15:20 Hx Obtained From: Patient Onset/Duration: Started Hours Ago - Earlier today Timing: Constant Initial Severity: Moderate Current Severity: Moderate Pain Intensity: 0 Pain Scale Used: 0-10 Numeric Aggravating Factors: Nothing Alleviating Factors: OTC Medicine - Tylenol Associated Signs and Symptoms: Other: - Positive cough, dizziness, tremors, rash , constipation, and loss of appetite; negative headache, ear ache, neck pain, photophobia, and dysuria. - Allergy/Home Medications Allergies/Adverse Reactions: Allergies Allergy/AdvReac Type Severity Reaction Status Date / Time No Known Allergies Allergy Verified 02/17/17 15:16 PMH/Surg Hx/FS Hx/Imm Hx Endocrine/Hematology History: Denies: Hx Diabetes, Hx Thyroid Disease Cardiovascular History: Reports: Hx Congestive Heart Failure, Hx Hypertension Respiratory History: Reports: Hx Asthma - as a child Denies: Hx Chronic Obstructive Pulmonary Disease (COPD) GI History: Denies: Hx Ulcer History: Denies: Hx Renal Disease - Surgical History Surgery Procedure, Year, and Place: 2013 vasectomy Infectious Disease History: No Infectious Disease History: Denies: Hx Clostridium Difficile, Hx Hepatitis, Hx Human Immunodeficiency Virus (HIV), Hx of Known/Suspected MRSA, Hx Shingles, Hx Tuberculosis, Hx Known/ Suspected VRE, Hx Known/Suspected VRSA, History Other Infectious Disease, Traveled Outside the [place] in Last 30 Days - Family History Known Family History: Positive: Cardiac Disease - Social History Alcohol Use: Rare Substance Use Type: Reports: None Substance Use Comment - Amount & Last Used: last use of heroin may 01, 2016 Smoking Status (MU): Heavy Every Day Tobacco Smoker Type: Cigarettes Amount Used/How Often: 1 ppd Length of Time of Smoking/Using Tobacco: 13 years Have You Smoked in the Last Year: Yes Review of Systems Positive: Fever Negative: Photophobia Negative: Ear Ache Positive: Cough Positive: Other - Positive constipation and loss of appetite Negative: dysuria Positive: Other - Negative neck pain Positive: Rash Neurological: Other - Positive dizziness, tremors; negative headache All Other Systems Reviewed And Are Negative: Yes Physical Exam - Summary Physical Exam Summary: VITAL SIGNS: Reviewed. GENERAL: Patient is a well-developed and nourished male who is shivering in the stretcher. Patient is not in any acute respiratory distress. HEAD AND FACE: No signs of trauma. No ecchymosis, hematomas or skull depressions. No sinus tenderness. EYES: PERRLA, EOMI x 2, No injected conjunctiva, no nystagmus. EARS: Hearing grossly intact. Ear canals and tympanic membranes are within normal limits. MOUTH: Oropharynx within normal limits. NECK: Supple, trachea is midline, no adenopathy, no JVD, no carotid bruit, no c- spine tenderness, neck with full ROM. CHEST: Symmetric, no tenderness at palpation LUNGS: Clear to auscultation bilaterally. No wheezing or crackles. CVS: Regular rate and rhythm, S1 and S2 present, no murmurs or gallops appreciated. ABDOMEN: Soft, non-tender. No signs of distention. No rebound no guarding, and no masses palpated. Bowel sounds are normal. EXTREMITIES: FROM in all major joints, no edema, no cyanosis or clubbing. NEURO: Alert and oriented x 3. No acute neurological deficits. Speech is normal and follows commands. SKIN: Dry and warm. Rash in right upper extremity. sun on leg. Triage Information Reviewed: Yes Vital Signs On Initial Exam: Initial Vitals Temp Pulse Resp BP Pulse Ox 97.9 F 97 20 118/74 99 02/17/17 13:46 02/17/17 13:46 02/17/17 13:46 02/17/17 13:46 02/17/17 13:46 Vital Signs Reviewed: Yes - [place] Coma Scale Coma Scale Total: 15 Diagnostics - Vital Signs Vital Signs Temp Pulse Resp BP Pulse Ox 02/17/17 15:13 109 23 96 02/17/17 15:12 105 22 98 02/17/17 14:58 97.3 F 92 118/74 98 02/17/17 13:46 97.9 F 97 99 - Laboratory Lab Results: Lab Results 02/17/17 02/17/17 02/17/17 Range/Units 15:45 15:45 15:45 WBC 20.0 H (3.5-10.8) 10^3/ul RBC 4.79 (4.0-5.4) 10^6/ul Hgb 13.3 L (14.0-18.0) g/dl Hct 40 L (42-52) % MCV 83 (80-94) fL MCH 28 (27-31) pg MCHC 33 (31-36) g/dl RDW 16 H (10.5-15) % Plt Count 245 (150-450) 10^3/ul MPV 8 (7.4-10.4) um3 Neut % (Auto) 90.2 H (38-83) % Lymph % (Auto) 4.4 L (25-47) % [place] % (Auto) 5.0 (1-9) % Eos % (Auto) 0.1 (0-6) % Baso % (Auto) 0.3 (0-2) % Absolute Neuts (auto) 18.0 H (1.5-7.7) 10^3/ul Absolute Lymphs (auto) 0.9 L (1.0-4.8) 10^3/ul Absolute Monos (auto) 1.0 H (0-0.8) 10^3/ul Absolute Eos (auto) 0 (0-0.6) 10^3/ul Absolute Basos (auto) 0.1 (0-0.2) 10^3/ul Absolute Nucleated RBC 0 10^3/ul Nucleated RBC % 0 ESR 77 H (0-14) mm/Hr INR (Anticoag Therapy) 1.27 H (0.89-1.11) APTT 27.0 (26.0-36.3) seconds Fibrinogen 538 H (110.8-404.3) mg/dL Sodium 136 (133-145) mmol/L Potassium 3.6 (3.5-5.0) mmol/L Chloride 100 L (101-111) mmol/L Carbon Dioxide 27 (22-32) mmol/L Anion Gap 9 (2-11) mmol/L BUN 11 (6-24) mg/dL Creatinine 1.05 (0.67-1.17) mg/dL Est GFR ( Amer) 105.3 (>60) Est GFR (Non-Af Amer) 81.9 (>60) BUN/Creatinine Ratio 10.5 (8-20) Glucose 111 H (70-100) mg/dL Lactic Acid (0.5-2.0) mmol/L Calcium 9.5 (8.6-10.3) mg/dL Total Bilirubin 0.70 (0.2-1.0) mg/dL AST 14 (13-39) U/L ALT 14 (7-52) U/L Alkaline Phosphatase 76 (34-104) U/L C-Reactive Protein 194.29 H (< 5.00) mg/L B-Natriuretic Peptide ( - 100) pg/mL Total Protein 8.7 (6.4-8.9) g/dL Albumin 3.9 (3.2-5.2) g/dL Globulin 4.8 H (2-4) g/dL Albumin/Globulin Ratio 0.8 L (1-3) Procalcitonin (<0.6) ng/mL Urine Color Urine Appearance Urine pH (5-9) Ur Specific [place] (1.010-1.030) Urine Protein (Negative) Urine Ketones (Negative) Urine Blood (Negative) Urine Nitrate (Negative) Urine Bilirubin (Negative) Urine Urobilinogen (Negative) Ur Leukocyte Esterase (Negative) Urine WBC (Auto) (Absent) Urine RBC (Auto) (Absent) Ur Squamous Epith Cells (Absent) Urine Bacteria (Absent) Urine Glucose (Negative) Urine Opiates Screen (None Detect) Ur Barbiturates Screen (None Detect) Ur Phencyclidine Scrn (None Detect) Ur Amphetamines Screen (None Detect) U Benzodiazepines Scrn (None Detect) Urine Cocaine Screen (None Detect) U Cannabinoids Screen (None Detect) 02/17/17 02/17/17 02/17/17 Range/Units 15:45 15:45 15:45 WBC (3.5-10.8) 10^3/ul RBC (4.0-5.4) 10^6/ul Hgb (14.0-18.0) g/dl Hct (42-52) % MCV (80-94) fL MCH (27-31) pg MCHC (31-36) g/dl RDW (10.5-15) % Plt Count (150-450) 10^3/ul MPV (7.4-10.4) um3 Neut % (Auto) (38-83) % Lymph % (Auto) (25-47) % [place] % (Auto) (1-9) % Eos % (Auto) (0-6) % Baso % (Auto) (0-2) % Absolute Neuts (auto) (1.5-7.7) 10^3/ul Absolute Lymphs (auto) (1.0-4.8) 10^3/ul Absolute Monos (auto) (0-0.8) 10^3/ul Absolute Eos (auto) (0-0.6) 10^3/ul Absolute Basos (auto) (0-0.2) 10^3/ul Absolute Nucleated RBC 10^3/ul Nucleated RBC % ESR (0-14) mm/Hr INR (Anticoag Therapy) (0.89-1.11) APTT (26.0-36.3) seconds Fibrinogen (110.8-404.3) mg/dL Sodium (133-145) mmol/L Potassium (3.5-5.0) mmol/L Chloride (101-111) mmol/L Carbon Dioxide (22-32) mmol/L Anion Gap (2-11) mmol/L BUN (6-24) mg/dL Creatinine (0.67-1.17) mg/dL Est GFR ( Amer) (>60) Est GFR (Non-Af Amer) (>60) BUN/Creatinine Ratio (8-20) Glucose (70-100) mg/dL Lactic Acid 2.0 (0.5-2.0) mmol/L Calcium (8.6-10.3) mg/dL Total Bilirubin (0.2-1.0) mg/dL AST (13-39) U/L ALT (7-52) U/L Alkaline Phosphatase (34-104) U/L C-Reactive Protein (< 5.00) mg/L B-Natriuretic Peptide 54 ( - 100) pg/mL Total Protein (6.4-8.9) g/dL Albumin (3.2-5.2) g/dL Globulin (2-4) g/dL Albumin/Globulin Ratio (1-3) Procalcitonin 0.7 H (<0.6) ng/mL Urine Color Urine Appearance Urine pH (5-9) Ur Specific [place] (1.010-1.030) Urine Protein (Negative) Urine Ketones (Negative) Urine Blood (Negative) Urine Nitrate (Negative) Urine Bilirubin (Negative) Urine Urobilinogen (Negative) Ur Leukocyte Esterase (Negative) Urine WBC (Auto) (Absent) Urine RBC (Auto) (Absent) Ur Squamous Epith Cells (Absent) Urine Bacteria (Absent) Urine Glucose (Negative) Urine Opiates Screen (None Detect) Ur Barbiturates Screen (None Detect) Ur Phencyclidine Scrn (None Detect) Ur Amphetamines Screen (None Detect) U Benzodiazepines Scrn (None Detect) Urine Cocaine Screen (None Detect) U Cannabinoids Screen (None Detect) 02/17/17 02/17/17 02/17/17 Range/Units 17:14 17:14 19:50 WBC (3.5-10.8) 10^3/ul RBC (4.0-5.4) 10^6/ul Hgb (14.0-18.0) g/dl Hct (42-52) % MCV (80-94) fL MCH (27-31) pg MCHC (31-36) g/dl RDW (10.5-15) % Plt Count (150-450) 10^3/ul MPV (7.4-10.4) um3 Neut % (Auto) (38-83) % Lymph % (Auto) (25-47) % [place] % (Auto) (1-9) % Eos % (Auto) (0-6) % Baso % (Auto) (0-2) % Absolute Neuts (auto) (1.5-7.7) 10^3/ul Absolute Lymphs (auto) (1.0-4.8) 10^3/ul Absolute Monos (auto) (0-0.8) 10^3/ul Absolute Eos (auto) (0-0.6) 10^3/ul Absolute Basos (auto) (0-0.2) 10^3/ul Absolute Nucleated RBC 10^3/ul Nucleated RBC % ESR (0-14) mm/Hr INR (Anticoag Therapy) (0.89-1.11) APTT (26.0-36.3) seconds Fibrinogen (110.8-404.3) mg/dL Sodium (133-145) mmol/L Potassium (3.5-5.0) mmol/L Chloride (101-111) mmol/L Carbon Dioxide (22-32) mmol/L Anion Gap (2-11) mmol/L BUN (6-24) mg/dL Creatinine (0.67-1.17) mg/dL Est GFR ( Amer) (>60) Est GFR (Non-Af Amer) (>60) BUN/Creatinine Ratio (8-20) Glucose (70-100) mg/dL Lactic Acid 1.8 (0.5-2.0) mmol/L Calcium (8.6-10.3) mg/dL Total Bilirubin (0.2-1.0) mg/dL AST (13-39) U/L ALT (7-52) U/L Alkaline Phosphatase (34-104) U/L C-Reactive Protein (< 5.00) mg/L B-Natriuretic Peptide ( - 100) pg/mL Total Protein (6.4-8.9) g/dL Albumin (3.2-5.2) g/dL Globulin (2-4) g/dL Albumin/Globulin Ratio (1-3) Procalcitonin (<0.6) ng/mL Urine Color Yellow Urine Appearance Clear Urine pH 5.0 (5-9) Ur Specific [place] 1.014 (1.010-1.030) Urine Protein Negative (Negative) Urine Ketones Negative (Negative) Urine Blood 3+ H (Negative) Urine Nitrate Negative (Negative) Urine Bilirubin Negative (Negative) Urine Urobilinogen Negative (Negative) Ur Leukocyte Esterase Negative (Negative) Urine WBC (Auto) Trace(0-5/hpf) (Absent) Urine RBC (Auto) 1+(3-5/hpf) H (Absent) Ur Squamous Epith Cells Present H (Absent) Urine Bacteria Absent (Absent) Urine Glucose Negative (Negative) Urine Opiates Screen None detected (None Detect) Ur Barbiturates Screen None detected (None Detect) Ur Phencyclidine Scrn None detected (None Detect) Ur Amphetamines Screen Presumptive positive H (None Detect) U Benzodiazepines Scrn None detected (None Detect) Urine Cocaine Screen None detected (None Detect) U Cannabinoids Screen None detected (None Detect) 02/18/17 02/18/17 Range/Units 05:25 06:00 WBC 14.5 H (3.5-10.8) 10^3/ul RBC 4.14 (4.0-5.4) 10^6/ul Hgb 11.4 L (14.0-18.0) g/dl Hct 35 L (42-52) % MCV 84 (80-94) fL MCH 28 (27-31) pg MCHC 33 (31-36) g/dl RDW 16 H (10.5-15) % Plt Count 167 (150-450) 10^3/ul MPV 9 (7.4-10.4) um3 Neut % (Auto) 80.1 (38-83) % Lymph % (Auto) 5.9 L (25-47) % [place] % (Auto) 12.9 H (1-9) % Eos % (Auto) 0.7 (0-6) % Baso % (Auto) 0.4 (0-2) % Absolute Neuts (auto) 11.6 H (1.5-7.7) 10^3/ul Absolute Lymphs (auto) 0.9 L (1.0-4.8) 10^3/ul Absolute Monos (auto) 1.9 H (0-0.8) 10^3/ul Absolute Eos (auto) 0.1 (0-0.6) 10^3/ul Absolute Basos (auto) 0.1 (0-0.2) 10^3/ul Absolute Nucleated RBC 0 10^3/ul Nucleated RBC % 0 ESR (0-14) mm/Hr INR (Anticoag Therapy) (0.89-1.11) APTT (26.0-36.3) seconds Fibrinogen (110.8-404.3) mg/dL Sodium 139 (133-145) mmol/L Potassium 3.9 (3.5-5.0) mmol/L Chloride 108 (101-111) mmol/L Carbon Dioxide 24 (22-32) mmol/L Anion Gap 7 (2-11) mmol/L BUN 12 (6-24) mg/dL Creatinine 0.65 L (0.67-1.17) mg/dL Est GFR ( Amer) 183.1 (>60) Est GFR (Non-Af Amer) 142.4 (>60) BUN/Creatinine Ratio 18.5 (8-20) Glucose 111 H (70-100) mg/dL Lactic Acid (0.5-2.0) mmol/L Calcium 8.2 L (8.6-10.3) mg/dL Total Bilirubin (0.2-1.0) mg/dL AST (13-39) U/L ALT (7-52) U/L Alkaline Phosphatase (34-104) U/L C-Reactive Protein (< 5.00) mg/L B-Natriuretic Peptide ( - 100) pg/mL Total Protein (6.4-8.9) g/dL Albumin (3.2-5.2) g/dL Globulin (2-4) g/dL Albumin/Globulin Ratio (1-3) Procalcitonin (<0.6) ng/mL Urine Color Urine Appearance Urine pH (5-9) Ur Specific [place] (1.010-1.030) Urine Protein (Negative) Urine Ketones (Negative) Urine Blood (Negative) Urine Nitrate (Negative) Urine Bilirubin (Negative) Urine Urobilinogen (Negative) Ur Leukocyte Esterase (Negative) Urine WBC (Auto) (Absent) Urine RBC (Auto) (Absent) Ur Squamous Epith Cells (Absent) Urine Bacteria (Absent) Urine Glucose (Negative) Urine Opiates Screen (None Detect) Ur Barbiturates Screen (None Detect) Ur Phencyclidine Scrn (None Detect) Ur Amphetamines Screen (None Detect) U Benzodiazepines Scrn (None Detect) Urine Cocaine Screen (None Detect) U Cannabinoids Screen (None Detect) Result Diagrams: 02/18/17 06:00 02/18/17 05:25 Lab Statement: Any lab studies that have been ordered have been reviewed, and results considered in the medical decision making process. - Radiology CXR Radiology Interpretation Completed By: Radiologist - No evidence for acute intrathoracic disease. - CT Brain CT CT Interpretation Completed By: Radiologist - NO ACUTE INTRACRANIAL PATHOLOGY Course/Dx - Course Course Of Treatment: This patient is a 31 year old M presenting to [facility] accompanied by yoly with a chief complaint of febrile illness since earlier today. Bill reports the fever has been as high as 104.6. Pt was on abx recently for aspiration pneumonia. He rates the pain 0/10 in severity. Symptoms aggravated by nothing and alleviated by Tylenol. Pt reports cough, dizziness, tremors, rash, constipation, and loss of appetite. Pt denies headache, ear ache , neck pain, photophobia, and dysuria. Denies PMHx and PSHx, Tobbaco abuse disorder. Assessment/Plan: Test results show WBC of 20, ESR of 77, Fibrinogen of 538, CRP of 194, and procalcitonin of 0.7. Urinalysis negative for UTI. Toxicology positive for amphetamines. Brain CT reveals NO ACUTE INTRACRANIAL PATHOLOGY. CXR reveals No evidence for acute intrathoracic disease. At this point, I dont have source for the fever. However, the patient was started on rocephin and vancomycin as a broad spectrum abx. I offered the patient a LP however the patient refused. Pt reports he does not have headache, photophobia, or neck pain , therefore he does not want an LP to rule out meningitis. Patient understands risks and benefits of the LP and he refuses. Patient is A&Ox3 and is able to make decisions. At this time, I discussed the physical exam findings with Dr. Higgins who accepted the patient for admission. - Diagnoses Provider Diagnoses: Fever - Provider Notifications Discussed Care Of Patient With: Jessica Higgins Time Discussed With Above Provider: 17:16 Instructed by Provider To: Other - Consulted Dr. Higgins (hospitalist) who accepts the patient for admission. Discharge - Discharge Plan Condition: Stable Disposition: ADMITTED TO [facility] documentation as recorded by the Danielle lombardo Alfonso accurately reflects the service I personally performed and the decisions made by me, Lucian Pulido MD.
--- NOTE | 2017-02-18 19:45 | CONS ---
CC: Dr. Hein CONSULTATION REPORT: DATE OF CONSULT: 02/18/17 CHIEF COMPLAINT: Left knee pain. HISTORY OF PRESENT ILLNESS: Eliazar is a 31-year-old male, who woke up a couple of nights ago with very high fever. The next day, he got up and said he had significant knee pain, he does not recall any injury. He was admitted to the hospital yesterday with bacteremia which was MRSA and Staph sonya us. He does overall feel better having been on some vancomycin overnight, but says that his knee do es not feel any better. He says he has trouble moving and he complains of pain on the medial aspect of the knee. He has never had difficulty with his knee in the past. He says that his knee has not been swollen. PHYSICAL EXAM: He is a 31-year-old gentleman in mild distress at rest. He has significant pain wit h attempted range of motion of his knee. He cannot fully extend his knee. He can flex his knee pas t 90 degrees, but it is quite painful. There is no effusion that I can detect. He has a lot of medi al-sided tenderness. There is no instability. There is no erythema. He has painful range of motion of his patella. There is no sign of septic arthritis. DIAGNOSTIC STUDIES: X-ray AP and lateral of the left knee shows a small knee effusion, but otherwis e looks normal. IMPRESSION: Left knee pain in the presence of bacteremia, but perhaps coincidental medial collatera l ligament or medial meniscus tear. PLAN: I recommend an MRI of the left knee to evaluate the medial meniscus and the medial collateral ligament. If indeed there shows to be a large effusion on the MRI and no other findings, then I wi ll aspirate the knee, but at this point, it does not look like a septic arthritis of the left knee. [id number]/[id number] #: [id number]
[2017-02-19] MEDS: Acetaminophen TAB* 325 MG PO PRN (03:29)
[2017-02-19] MEDS: Heparin VIAL(*) 5000 UNITS/ML VIAL (FIVE THOUSAND) SUBCUT SCH ×3 (06:13→21:21)
[2017-02-19] MEDS ORDERED: Vancomycin Trough Check NOTE FOLLOW UP ONE (08:00)
[2017-02-19] MEDS: Nicotine PATCH 21 MG/24 HR* PATCH TRANSDERM SCH (08:21)
[2017-02-19] MEDS: NS 0.9% 1000 ML* 1,000 ML IV SCH (08:23)
[2017-02-19] MEDS: Vancomycin(*) 1,250 MG in NS 0.9% 250 ML* 250 ML IVPB SCH ×3 (08:36→23:31)
--- NOTE | 2017-02-19 11:47 | PN ---
Subjective Date of Service: 02/19/17 Interval History: Mr. Gudino denies any complaint today. He specifically denies chest pain, SOB , nausea, or abdominal pain. Objective Active Medications: Acetaminophen (Tylenol Tab*) 650 mg PO Q4H PRN Heparin Sodium (Porcine) (Heparin Vial(*)) 5,000 units SUBCUT Q8HR [facility] Vancomycin HCl 1,250 mg/ (Sodium Chloride) 250 mls @ 166.667 mls/hr IVPB Q8H [facility] Nicotine (Nicotine Patch 21 Mg/24 Hr*) 1 patch TRANSDERM DAILY [facility] Pharmacy Consult (Vancomycin Per Pharmacy*) 1 note FOLLOW UP . PRN Vital Signs 02/18/17 02/18/17 02/18/17 16:35 20:00 20:31 Temperature 100.3 F 99.8 F Pulse Rate 81 85 Respiratory 24 18 25 Rate Blood Pressure 117/68 116/61 (mmHg) O2 Sat by Pulse 98 99 Oximetry 02/19/17 02/19/17 02/19/17 00:12 00:37 03:34 Temperature 99.2 F 98.8 F Pulse Rate 78 70 Respiratory 16 20 Rate Blood Pressure 119/65 114/70 (mmHg) O2 Sat by Pulse 97 100 Oximetry 02/19/17 02/19/17 08:00 10:03 Temperature 97.9 F Pulse Rate Respiratory 18 16 Rate Blood Pressure 120/89 (mmHg) O2 Sat by Pulse 100 96 Oximetry Oxygen Devices in Use Now: None Appearance: Patient lying in bed in NAD Eyes: No Scleral Icterus Ears/Nose/Mouth/Throat: Mucous Membranes Moist Neck: NL Appearance and Movements; NL JVP Respiratory: Symmetrical Chest Expansion and Respiratory Effort, Clear to Auscultation Cardiovascular: NL Sounds; No Murmurs; No JVD, No Edema Abdominal: NL Sounds; No Tenderness; No Distention Lymphatic: No Cervical Adenopathy Extremities: No Edema Skin: No Rash or Ulcers Neurological: Alert and Oriented x 3, NL Muscle Strength and Tone Nutrition: Taking PO's Result Diagrams: 02/18/17 06:00 02/18/17 05:25 Additional Lab and Data: Lab Results 02/17/17 02/17/17 02/17/17 Range/Units 15:45 15:45 15:45 WBC 20.0 H (3.5-10.8) 10^3/ul RBC 4.79 (4.0-5.4) 10^6/ul Hgb 13.3 L (14.0-18.0) g/dl Hct 40 L (42-52) % MCV 83 (80-94) fL MCH 28 (27-31) pg MCHC 33 (31-36) g/dl RDW 16 H (10.5-15) % Plt Count 245 (150-450) 10^3/ul MPV 8 (7.4-10.4) um3 Neut % (Auto) 90.2 H (38-83) % Lymph % (Auto) 4.4 L (25-47) % [place] % (Auto) 5.0 (1-9) % Eos % (Auto) 0.1 (0-6) % Baso % (Auto) 0.3 (0-2) % Absolute Neuts (auto) 18.0 H (1.5-7.7) 10^3/ul Absolute Lymphs (auto) 0.9 L (1.0-4.8) 10^3/ul Absolute Monos (auto) 1.0 H (0-0.8) 10^3/ul Absolute Eos (auto) 0 (0-0.6) 10^3/ul Absolute Basos (auto) 0.1 (0-0.2) 10^3/ul Absolute Nucleated RBC 0 10^3/ul Nucleated RBC % 0 ESR 77 H (0-14) mm/Hr INR (Anticoag Therapy) 1.27 H (0.89-1.11) APTT 27.0 (26.0-36.3) seconds Fibrinogen 538 H (110.8-404.3) mg/dL Sodium 136 (133-145) mmol/L Potassium 3.6 (3.5-5.0) mmol/L Chloride 100 L (101-111) mmol/L Carbon Dioxide 27 (22-32) mmol/L Anion Gap 9 (2-11) mmol/L BUN 11 (6-24) mg/dL Creatinine 1.05 (0.67-1.17) mg/dL Est GFR ( Amer) 105.3 (>60) Est GFR (Non-Af Amer) 81.9 (>60) BUN/Creatinine Ratio 10.5 (8-20) Glucose 111 H (70-100) mg/dL Lactic Acid (0.5-2.0) mmol/L Calcium 9.5 (8.6-10.3) mg/dL Total Bilirubin 0.70 (0.2-1.0) mg/dL AST 14 (13-39) U/L ALT 14 (7-52) U/L Alkaline Phosphatase 76 (34-104) U/L C-Reactive Protein 194.29 H (< 5.00) mg/L B-Natriuretic Peptide ( - 100) pg/mL Total Protein 8.7 (6.4-8.9) g/dL Albumin 3.9 (3.2-5.2) g/dL Globulin 4.8 H (2-4) g/dL Albumin/Globulin Ratio 0.8 L (1-3) Procalcitonin (<0.6) ng/mL Urine Color Urine Appearance Urine pH (5-9) Ur Specific [place] (1.010-1.030) Urine Protein (Negative) Urine Ketones (Negative) Urine Blood (Negative) Urine Nitrate (Negative) Urine Bilirubin (Negative) Urine Urobilinogen (Negative) Ur Leukocyte Esterase (Negative) Urine WBC (Auto) (Absent) Urine RBC (Auto) (Absent) Ur Squamous Epith Cells (Absent) Urine Bacteria (Absent) Urine Glucose (Negative) Urine Opiates Screen (None Detect) Ur Barbiturates Screen (None Detect) Ur Phencyclidine Scrn (None Detect) Ur Amphetamines Screen (None Detect) U Benzodiazepines Scrn (None Detect) Urine Cocaine Screen (None Detect) U Cannabinoids Screen (None Detect) 02/17/17 02/17/17 02/17/17 Range/Units 15:45 15:45 15:45 WBC (3.5-10.8) 10^3/ul RBC (4.0-5.4) 10^6/ul Hgb (14.0-18.0) g/dl Hct (42-52) % MCV (80-94) fL MCH (27-31) pg MCHC (31-36) g/dl RDW (10.5-15) % Plt Count (150-450) 10^3/ul MPV (7.4-10.4) um3 Neut % (Auto) (38-83) % Lymph % (Auto) (25-47) % [place] % (Auto) (1-9) % Eos % (Auto) (0-6) % Baso % (Auto) (0-2) % Absolute Neuts (auto) (1.5-7.7) 10^3/ul Absolute Lymphs (auto) (1.0-4.8) 10^3/ul Absolute Monos (auto) (0-0.8) 10^3/ul Absolute Eos (auto) (0-0.6) 10^3/ul Absolute Basos (auto) (0-0.2) 10^3/ul Absolute Nucleated RBC 10^3/ul Nucleated RBC % ESR (0-14) mm/Hr INR (Anticoag Therapy) (0.89-1.11) APTT (26.0-36.3) seconds Fibrinogen (110.8-404.3) mg/dL Sodium (133-145) mmol/L Potassium (3.5-5.0) mmol/L Chloride (101-111) mmol/L Carbon Dioxide (22-32) mmol/L Anion Gap (2-11) mmol/L BUN (6-24) mg/dL Creatinine (0.67-1.17) mg/dL Est GFR ( Amer) (>60) Est GFR (Non-Af Amer) (>60) BUN/Creatinine Ratio (8-20) Glucose (70-100) mg/dL Lactic Acid 2.0 (0.5-2.0) mmol/L Calcium (8.6-10.3) mg/dL Total Bilirubin (0.2-1.0) mg/dL AST (13-39) U/L ALT (7-52) U/L Alkaline Phosphatase (34-104) U/L C-Reactive Protein (< 5.00) mg/L B-Natriuretic Peptide 54 ( - 100) pg/mL Total Protein (6.4-8.9) g/dL Albumin (3.2-5.2) g/dL Globulin (2-4) g/dL Albumin/Globulin Ratio (1-3) Procalcitonin 0.7 H (<0.6) ng/mL Urine Color Urine Appearance Urine pH (5-9) Ur Specific [place] (1.010-1.030) Urine Protein (Negative) Urine Ketones (Negative) Urine Blood (Negative) Urine Nitrate (Negative) Urine Bilirubin (Negative) Urine Urobilinogen (Negative) Ur Leukocyte Esterase (Negative) Urine WBC (Auto) (Absent) Urine RBC (Auto) (Absent) Ur Squamous Epith Cells (Absent) Urine Bacteria (Absent) Urine Glucose (Negative) Urine Opiates Screen (None Detect) Ur Barbiturates Screen (None Detect) Ur Phencyclidine Scrn (None Detect) Ur Amphetamines Screen (None Detect) U Benzodiazepines Scrn (None Detect) Urine Cocaine Screen (None Detect) U Cannabinoids Screen (None Detect) 02/17/17 02/17/17 02/17/17 Range/Units 17:14 17:14 19:50 WBC (3.5-10.8) 10^3/ul RBC (4.0-5.4) 10^6/ul Hgb (14.0-18.0) g/dl Hct (42-52) % MCV (80-94) fL MCH (27-31) pg MCHC (31-36) g/dl RDW (10.5-15) % Plt Count (150-450) 10^3/ul MPV (7.4-10.4) um3 Neut % (Auto) (38-83) % Lymph % (Auto) (25-47) % [place] % (Auto) (1-9) % Eos % (Auto) (0-6) % Baso % (Auto) (0-2) % Absolute Neuts (auto) (1.5-7.7) 10^3/ul Absolute Lymphs (auto) (1.0-4.8) 10^3/ul Absolute Monos (auto) (0-0.8) 10^3/ul Absolute Eos (auto) (0-0.6) 10^3/ul Absolute Basos (auto) (0-0.2) 10^3/ul Absolute Nucleated RBC 10^3/ul Nucleated RBC % ESR (0-14) mm/Hr INR (Anticoag Therapy) (0.89-1.11) APTT (26.0-36.3) seconds Fibrinogen (110.8-404.3) mg/dL Sodium (133-145) mmol/L Potassium (3.5-5.0) mmol/L Chloride (101-111) mmol/L Carbon Dioxide (22-32) mmol/L Anion Gap (2-11) mmol/L BUN (6-24) mg/dL Creatinine (0.67-1.17) mg/dL Est GFR ( Amer) (>60) Est GFR (Non-Af Amer) (>60) BUN/Creatinine Ratio (8-20) Glucose (70-100) mg/dL Lactic Acid 1.8 (0.5-2.0) mmol/L Calcium (8.6-10.3) mg/dL Total Bilirubin (0.2-1.0) mg/dL AST (13-39) U/L ALT (7-52) U/L Alkaline Phosphatase (34-104) U/L C-Reactive Protein (< 5.00) mg/L B-Natriuretic Peptide ( - 100) pg/mL Total Protein (6.4-8.9) g/dL Albumin (3.2-5.2) g/dL Globulin (2-4) g/dL Albumin/Globulin Ratio (1-3) Procalcitonin (<0.6) ng/mL Urine Color Yellow Urine Appearance Clear Urine pH 5.0 (5-9) Ur Specific [place] 1.014 (1.010-1.030) Urine Protein Negative (Negative) Urine Ketones Negative (Negative) Urine Blood 3+ H (Negative) Urine Nitrate Negative (Negative) Urine Bilirubin Negative (Negative) Urine Urobilinogen Negative (Negative) Ur Leukocyte Esterase Negative (Negative) Urine WBC (Auto) Trace(0-5/hpf) (Absent) Urine RBC (Auto) 1+(3-5/hpf) H (Absent) Ur Squamous Epith Cells Present H (Absent) Urine Bacteria Absent (Absent) Urine Glucose Negative (Negative) Urine Opiates Screen None detected (None Detect) Ur Barbiturates Screen None detected (None Detect) Ur Phencyclidine Scrn None detected (None Detect) Ur Amphetamines Screen Presumptive positive H (None Detect) U Benzodiazepines Scrn None detected (None Detect) Urine Cocaine Screen None detected (None Detect) U Cannabinoids Screen None detected (None Detect) 02/18/17 02/18/17 Range/Units 05:25 06:00 WBC 14.5 H (3.5-10.8) 10^3/ul RBC 4.14 (4.0-5.4) 10^6/ul Hgb 11.4 L (14.0-18.0) g/dl Hct 35 L (42-52) % MCV 84 (80-94) fL MCH 28 (27-31) pg MCHC 33 (31-36) g/dl RDW 16 H (10.5-15) % Plt Count 167 (150-450) 10^3/ul MPV 9 (7.4-10.4) um3 Neut % (Auto) 80.1 (38-83) % Lymph % (Auto) 5.9 L (25-47) % Tyler % (Auto) 12.9 H (1-9) % Eos % (Auto) 0.7 (0-6) % Baso % (Auto) 0.4 (0-2) % Absolute Neuts (auto) 11.6 H (1.5-7.7) 10^3/ul Absolute Lymphs (auto) 0.9 L (1.0-4.8) 10^3/ul Absolute Monos (auto) 1.9 H (0-0.8) 10^3/ul Absolute Eos (auto) 0.1 (0-0.6) 10^3/ul Absolute Basos (auto) 0.1 (0-0.2) 10^3/ul Absolute Nucleated RBC 0 10^3/ul Nucleated RBC % 0 ESR (0-14) mm/Hr INR (Anticoag Therapy) (0.89-1.11) APTT (26.0-36.3) seconds Fibrinogen (110.8-404.3) mg/dL Sodium 139 (133-145) mmol/L Potassium 3.9 (3.5-5.0) mmol/L Chloride 108 (101-111) mmol/L Carbon Dioxide 24 (22-32) mmol/L Anion Gap 7 (2-11) mmol/L BUN 12 (6-24) mg/dL Creatinine 0.65 L (0.67-1.17) mg/dL Est GFR ( Amer) 183.1 (>60) Est GFR (Non-Af Amer) 142.4 (>60) BUN/Creatinine Ratio 18.5 (8-20) Glucose 111 H (70-100) mg/dL Lactic Acid (0.5-2.0) mmol/L Calcium 8.2 L (8.6-10.3) mg/dL Total Bilirubin (0.2-1.0) mg/dL AST (13-39) U/L ALT (7-52) U/L Alkaline Phosphatase (34-104) U/L C-Reactive Protein (< 5.00) mg/L B-Natriuretic Peptide ( - 100) pg/mL Total Protein (6.4-8.9) g/dL Albumin (3.2-5.2) g/dL Globulin (2-4) g/dL Albumin/Globulin Ratio (1-3) Procalcitonin (<0.6) ng/mL Urine Color Urine Appearance Urine pH (5-9) Ur Specific [place] (1.010-1.030) Urine Protein (Negative) Urine Ketones (Negative) Urine Blood (Negative) Urine Nitrate (Negative) Urine Bilirubin (Negative) Urine Urobilinogen (Negative) Ur Leukocyte Esterase (Negative) Urine WBC (Auto) (Absent) Urine RBC (Auto) (Absent) Ur Squamous Epith Cells (Absent) Urine Bacteria (Absent) Urine Glucose (Negative) Urine Opiates Screen (None Detect) Ur Barbiturates Screen (None Detect) Ur Phencyclidine Scrn (None Detect) Ur Amphetamines Screen (None Detect) U Benzodiazepines Scrn (None Detect) Urine Cocaine Screen (None Detect) U Cannabinoids Screen (None Detect) Assess/Plan/Problems-Billing Assessment: Mr. Gudino is a 31 yo male with a PMH of HTN who was admitted on 02/17/17 with acute febrile illness. - Patient Problems (1) Fever Comment: - Fever resolved. Leukocytosis resolving. ESR and CRP elevated on arrival. - Blood cultures positive for MRSA. - Patient has history of heroin abuse in the past but does deny recent injections. - Continue vancomycin. - Appreciate ID consult, continue vancomycin. - Ortho consult pending, Dr. Hein has recommended an xray of left knee. - Plan to transthoracic echo, if negative will need transesophagel echo per ID. (2) Hypertension Comment: - SBP 80-110s. - Hold lisinopril. (3) Full code status (4) DVT prophylaxis Comment: - Heparin SQ. Status and Disposition: Switch to inpatient status with MRSA bacteremia. Will need 6 weeks of IV antibiotics.
[2017-02-20] MEDS: Heparin VIAL(*) 5000 UNITS/ML VIAL (FIVE THOUSAND) SUBCUT SCH ×3 (05:40→22:07)
[2017-02-20] MEDS: Vancomycin(*) 1,250 MG in NS 0.9% 250 ML* 250 ML IVPB SCH ×3 (07:54→23:25)
[2017-02-20] MEDS: Nicotine PATCH 21 MG/24 HR* PATCH TRANSDERM SCH (07:55)
--- NOTE | 2017-02-20 13:05 | PN ---
Subjective Date of Service: 02/20/17 Interval History: Mr. Gudino reports that his left knee pain has improved. He denies other complaint including chest pain, SOB, nausea, or abdominal pain. Objective Active Medications: Acetaminophen (Tylenol Tab*) 650 mg PO Q4H PRN Heparin Sodium (Porcine) (Heparin Vial(*)) 5,[address] [facility] Vancomycin HCl 1,250 mg/ (Sodium Chloride) 250 mls @ 166.667 mls/hr IVPB Q8H [facility] Nicotine (Nicotine Patch 21 Mg/24 Hr*) [address] [facility] Pharmacy Consult (Vancomycin Per Pharmacy*) 1 note FOLLOW UP . PRN Pharmacy Profile Note (Vancomycin Trough Check) 1 note FOLLOW UP 0800 ONE Vital Signs 02/19/17 02/19/17 02/19/17 15:59 19:30 20:00 Temperature 99.5 F 98.3 F Pulse Rate 91 88 Respiratory 16 16 17 Rate Blood Pressure 122/65 113/62 (mmHg) O2 Sat by Pulse 98 99 Oximetry 02/19/17 02/20/17 02/20/17 23:43 04:50 07:10 Temperature 99.4 F 98.5 F 98.2 F Pulse Rate 83 71 80 Respiratory 16 18 16 Rate Blood Pressure 112/61 112/66 120/71 (mmHg) O2 Sat by Pulse 99 98 98 Oximetry 02/20/17 02/20/17 02/20/17 07:58 07:59 12:02 Temperature 98.4 F Pulse Rate 81 Respiratory 16 17 Rate Blood Pressure 117/64 (mmHg) O2 Sat by Pulse 98 99 Oximetry Oxygen Devices in Use Now: None Appearance: Patient sitting up in bed in NAD Eyes: No Scleral Icterus Ears/Nose/Mouth/Throat: Mucous Membranes Moist Neck: Trachea Midline Respiratory: Symmetrical Chest Expansion and Respiratory Effort, Clear to Auscultation Cardiovascular: NL Sounds; No Murmurs; No JVD, No Edema Abdominal: NL Sounds; No Tenderness; No Distention Lymphatic: No Cervical Adenopathy Extremities: No Edema Skin: No Rash or Ulcers Neurological: Alert and Oriented x 3, NL Muscle Strength and Tone Nutrition: Taking PO's Result Diagrams: 02/18/17 06:00 02/18/17 05:25 Additional Lab and Data: Lab Results 07/20/17 07/20/17 07/20/17 Range/Units 15:45 15:45 15:45 WBC 20.0 H (3.5-10.8) 10^3/ul RBC 4.79 (4.0-5.4) 10^6/ul Hgb 13.3 L (14.0-18.0) g/dl Hct 40 L (42-52) % MCV 83 (80-94) fL MCH 28 (27-31) pg MCHC 33 (31-36) g/dl RDW 16 H (10.5-15) % Plt Count 245 (150-450) 10^3/ul MPV 8 (7.4-10.4) um3 Neut % (Auto) 90.2 H (38-83) % Lymph % (Auto) 4.4 L (25-47) % [place] % (Auto) 5.0 (1-9) % Eos % (Auto) 0.1 (0-6) % Baso % (Auto) 0.3 (0-2) % Absolute Neuts (auto) 18.0 H (1.5-7.7) 10^3/ul Absolute Lymphs (auto) 0.9 L (1.0-4.8) 10^3/ul Absolute Monos (auto) 1.0 H (0-0.8) 10^3/ul Absolute Eos (auto) 0 (0-0.6) 10^3/ul Absolute Basos (auto) 0.1 (0-0.2) 10^3/ul Absolute Nucleated RBC 0 10^3/ul Nucleated RBC % 0 ESR 77 H (0-14) mm/Hr INR (Anticoag Therapy) 1.27 H (0.89-1.11) APTT 27.0 (26.0-36.3) seconds Fibrinogen 538 H (110.8-404.3) mg/dL Sodium 136 (133-145) mmol/L Potassium 3.6 (3.5-5.0) mmol/L Chloride 100 L (101-111) mmol/L Carbon Dioxide 27 (22-32) mmol/L Anion Gap 9 (2-11) mmol/L BUN 11 (6-24) mg/dL Creatinine 1.05 (0.67-1.17) mg/dL Est GFR ( Amer) 105.3 (>60) Est GFR (Non-Af Amer) 81.9 (>60) BUN/Creatinine Ratio 10.5 (8-20) Glucose 111 H (70-100) mg/dL Lactic Acid (0.5-2.0) mmol/L Calcium 9.5 (8.6-10.3) mg/dL Total Bilirubin 0.70 (0.2-1.0) mg/dL AST 14 (13-39) U/L ALT 14 (7-52) U/L Alkaline Phosphatase 76 (34-104) U/L C-Reactive Protein 194.29 H (< 5.00) mg/L B-Natriuretic Peptide ( - 100) pg/mL Total Protein 8.7 (6.4-8.9) g/dL Albumin 3.9 (3.2-5.2) g/dL Globulin 4.8 H (2-4) g/dL Albumin/Globulin Ratio 0.8 L (1-3) Procalcitonin (<0.6) ng/mL Urine Color Urine Appearance Urine pH (5-9) Ur Specific [place] (1.010-1.030) Urine Protein (Negative) Urine Ketones (Negative) Urine Blood (Negative) Urine Nitrate (Negative) Urine Bilirubin (Negative) Urine Urobilinogen (Negative) Ur Leukocyte Esterase (Negative) Urine WBC (Auto) (Absent) Urine RBC (Auto) (Absent) Ur Squamous Epith Cells (Absent) Urine Bacteria (Absent) Urine Glucose (Negative) Urine Opiates Screen (None Detect) Ur Barbiturates Screen (None Detect) Ur Phencyclidine Scrn (None Detect) Ur Amphetamines Screen (None Detect) U Benzodiazepines Scrn (None Detect) Urine Cocaine Screen (None Detect) U Cannabinoids Screen (None Detect) 02/17/17 02/17/17 02/17/17 Range/Units 15:45 15:45 15:45 WBC (3.5-10.8) 10^3/ul RBC (4.0-5.4) 10^6/ul Hgb (14.0-18.0) g/dl Hct (42-52) % MCV (80-94) fL MCH (27-31) pg MCHC (31-36) g/dl RDW (10.5-15) % Plt Count (150-450) 10^3/ul MPV (7.4-10.4) um3 Neut % (Auto) (38-83) % Lymph % (Auto) (25-47) % [place] % (Auto) (1-9) % Eos % (Auto) (0-6) % Baso % (Auto) (0-2) % Absolute Neuts (auto) (1.5-7.7) 10^3/ul Absolute Lymphs (auto) (1.0-4.8) 10^3/ul Absolute Monos (auto) (0-0.8) 10^3/ul Absolute Eos (auto) (0-0.6) 10^3/ul Absolute Basos (auto) (0-0.2) 10^3/ul Absolute Nucleated RBC 10^3/ul Nucleated RBC % ESR (0-14) mm/Hr INR (Anticoag Therapy) (0.89-1.11) APTT (26.0-36.3) seconds Fibrinogen (110.8-404.3) mg/dL Sodium (133-145) mmol/L Potassium (3.5-5.0) mmol/L Chloride (101-111) mmol/L Carbon Dioxide (22-32) mmol/L Anion Gap (2-11) mmol/L BUN (6-24) mg/dL Creatinine (0.67-1.17) mg/dL Est GFR ( Amer) (>60) Est GFR (Non-Af Amer) (>60) BUN/Creatinine Ratio (8-20) Glucose (70-100) mg/dL Lactic Acid 2.0 (0.5-2.0) mmol/L Calcium (8.6-10.3) mg/dL Total Bilirubin (0.2-1.0) mg/dL AST (13-39) U/L ALT (7-52) U/L Alkaline Phosphatase (34-104) U/L C-Reactive Protein (< 5.00) mg/L B-Natriuretic Peptide 54 ( - 100) pg/mL Total Protein (6.4-8.9) g/dL Albumin (3.2-5.2) g/dL Globulin (2-4) g/dL Albumin/Globulin Ratio (1-3) Procalcitonin 0.7 H (<0.6) ng/mL Urine Color Urine Appearance Urine pH (5-9) Ur Specific [place] (1.010-1.030) Urine Protein (Negative) Urine Ketones (Negative) Urine Blood (Negative) Urine Nitrate (Negative) Urine Bilirubin (Negative) Urine Urobilinogen (Negative) Ur Leukocyte Esterase (Negative) Urine WBC (Auto) (Absent) Urine RBC (Auto) (Absent) Ur Squamous Epith Cells (Absent) Urine Bacteria (Absent) Urine Glucose (Negative) Urine Opiates Screen (None Detect) Ur Barbiturates Screen (None Detect) Ur Phencyclidine Scrn (None Detect) Ur Amphetamines Screen (None Detect) U Benzodiazepines Scrn (None Detect) Urine Cocaine Screen (None Detect) U Cannabinoids Screen (None Detect) 02/17/17 02/17/17 02/17/17 Range/Units 17:14 17:14 19:50 WBC (3.5-10.8) 10^3/ul RBC (4.0-5.4) 10^6/ul Hgb (14.0-18.0) g/dl Hct (42-52) % MCV (80-94) fL MCH (27-31) pg MCHC (31-36) g/dl RDW (10.5-15) % Plt Count (150-450) 10^3/ul MPV (7.4-10.4) um3 Neut % (Auto) (38-83) % Lymph % (Auto) (25-47) % [place] % (Auto) (1-9) % Eos % (Auto) (0-6) % Baso % (Auto) (0-2) % Absolute Neuts (auto) (1.5-7.7) 10^3/ul Absolute Lymphs (auto) (1.0-4.8) 10^3/ul Absolute Monos (auto) (0-0.8) 10^3/ul Absolute Eos (auto) (0-0.6) 10^3/ul Absolute Basos (auto) (0-0.2) 10^3/ul Absolute Nucleated RBC 10^3/ul Nucleated RBC % ESR (0-14) mm/Hr INR (Anticoag Therapy) (0.89-1.11) APTT (26.0-36.3) seconds Fibrinogen (110.8-404.3) mg/dL Sodium (133-145) mmol/L Potassium (3.5-5.0) mmol/L Chloride (101-111) mmol/L Carbon Dioxide (22-32) mmol/L Anion Gap (2-11) mmol/L BUN (6-24) mg/dL Creatinine (0.67-1.17) mg/dL Est GFR ( Amer) (>60) Est GFR (Non-Af Amer) (>60) BUN/Creatinine Ratio (8-20) Glucose (70-100) mg/dL Lactic Acid 1.8 (0.5-2.0) mmol/L Calcium (8.6-10.3) mg/dL Total Bilirubin (0.2-1.0) mg/dL AST (13-39) U/L ALT (7-52) U/L Alkaline Phosphatase (34-104) U/L C-Reactive Protein (< 5.00) mg/L B-Natriuretic Peptide ( - 100) pg/mL Total Protein (6.4-8.9) g/dL Albumin (3.2-5.2) g/dL Globulin (2-4) g/dL Albumin/Globulin Ratio (1-3) Procalcitonin (<0.6) ng/mL Urine Color Yellow Urine Appearance Clear Urine pH 5.0 (5-9) Ur Specific [place] 1.014 (1.010-1.030) Urine Protein Negative (Negative) Urine Ketones Negative (Negative) Urine Blood 3+ H (Negative) Urine Nitrate Negative (Negative) Urine Bilirubin Negative (Negative) Urine Urobilinogen Negative (Negative) Ur Leukocyte Esterase Negative (Negative) Urine WBC (Auto) Trace(0-5/hpf) (Absent) Urine RBC (Auto) 1+(3-5/hpf) H (Absent) Ur Squamous Epith Cells Present H (Absent) Urine Bacteria Absent (Absent) Urine Glucose Negative (Negative) Urine Opiates Screen None detected (None Detect) Ur Barbiturates Screen None detected (None Detect) Ur Phencyclidine Scrn None detected (None Detect) Ur Amphetamines Screen Presumptive positive H (None Detect) U Benzodiazepines Scrn None detected (None Detect) Urine Cocaine Screen None detected (None Detect) U Cannabinoids Screen None detected (None Detect) 02/18/17 02/18/17 Range/Units 05:25 06:00 WBC 14.5 H (3.5-10.8) 10^3/ul RBC 4.14 (4.0-5.4) 10^6/ul Hgb 11.4 L (14.0-18.0) g/dl Hct 35 L (42-52) % MCV 84 (80-94) fL MCH 28 (27-31) pg MCHC 33 (31-36) g/dl RDW 16 H (10.5-15) % Plt Count 167 (150-450) 10^3/ul MPV 9 (7.4-10.4) um3 Neut % (Auto) 80.1 (38-83) % Lymph % (Auto) 5.9 L (25-47) % [place] % (Auto) 12.9 H (1-9) % Eos % (Auto) 0.7 (0-6) % Baso % (Auto) 0.4 (0-2) % Absolute Neuts (auto) 11.6 H (1.5-7.7) 10^3/ul Absolute Lymphs (auto) 0.9 L (1.0-4.8) 10^3/ul Absolute Monos (auto) 1.9 H (0-0.8) 10^3/ul Absolute Eos (auto) 0.1 (0-0.6) 10^3/ul Absolute Basos (auto) 0.1 (0-0.2) 10^3/ul Absolute Nucleated RBC 0 10^3/ul Nucleated RBC % 0 ESR (0-14) mm/Hr INR (Anticoag Therapy) (0.89-1.11) APTT (26.0-36.3) seconds Fibrinogen (110.8-404.3) mg/dL Sodium 139 (133-145) mmol/L Potassium 3.9 (3.5-5.0) mmol/L Chloride 108 (101-111) mmol/L Carbon Dioxide 24 (22-32) mmol/L Anion Gap 7 (2-11) mmol/L BUN 12 (6-24) mg/dL Creatinine 0.65 L (0.67-1.17) mg/dL Est GFR ( Amer) 183.1 (>60) Est GFR (Non-Af Amer) 142.4 (>60) BUN/Creatinine Ratio 18.5 (8-20) Glucose 111 H (70-100) mg/dL Lactic Acid (0.5-2.0) mmol/L Calcium 8.2 L (8.6-10.3) mg/dL Total Bilirubin (0.2-1.0) mg/dL AST (13-39) U/L ALT (7-52) U/L Alkaline Phosphatase (34-104) U/L C-Reactive Protein (< 5.00) mg/L B-Natriuretic Peptide ( - 100) pg/mL Total Protein (6.4-8.9) g/dL Albumin (3.2-5.2) g/dL Globulin (2-4) g/dL Albumin/Globulin Ratio (1-3) Procalcitonin (<0.6) ng/mL Urine Color Urine Appearance Urine pH (5-9) Ur Specific [place] (1.010-1.030) Urine Protein (Negative) Urine Ketones (Negative) Urine Blood (Negative) Urine Nitrate (Negative) Urine Bilirubin (Negative) Urine Urobilinogen (Negative) Ur Leukocyte Esterase (Negative) Urine WBC (Auto) (Absent) Urine RBC (Auto) (Absent) Ur Squamous Epith Cells (Absent) Urine Bacteria (Absent) Urine Glucose (Negative) Urine Opiates Screen (None Detect) Ur Barbiturates Screen (None Detect) Ur Phencyclidine Scrn (None Detect) Ur Amphetamines Screen (None Detect) U Benzodiazepines Scrn (None Detect) Urine Cocaine Screen (None Detect) U Cannabinoids Screen (None Detect) Microbiology and Other Data: Microbiology 02/19/17 19:21 Anaerobic Blood Culture - Final Blood Venous Assess/Plan/Problems-Billing Assessment: Mr. Gudino is a 31 yo male with a PMH of HTN who was admitted on 02/17/17 with acute febrile illness. - Patient Problems (1) Endocarditis due to Staphylococcus Comment: - Fever resolved. Leukocytosis resolving. ESR and CRP elevated on arrival. - Blood cultures positive for MRSA and transthoracic echo with vegetation on tricuspid valve, mild to moderate regurgitation noted. - Repeat cultures from 02/19/17 appear to continue to show staph. - Patient has history of heroin abuse in the past but does deny recent injections. - Continue vancomycin. - Appreciate ID consult, continue vancomycin. Will need 6 weeks of IV abx. (2) Left knee pain Comment: - Appreciate ortho consult. No overt evidence of infection or effusion. - MRI knee planned for tomorrow. (3) Hypertension Comment: - SBP 80-110s. - Hold lisinopril. (4) Full code status (5) DVT prophylaxis Comment: - Heparin SQ. Status and Disposition: Inpatient. Will need 6 weeks of IV antibiotics.
[2017-02-21] MEDS: Heparin VIAL(*) 5000 UNITS/ML VIAL (FIVE THOUSAND) SUBCUT SCH ×3 (05:50→21:33)
[2017-02-21] MEDS ORDERED: Vancomycin Trough Check NOTE FOLLOW UP ONE (08:00)
[2017-02-21] MEDS: Vancomycin(*) 1,250 MG in NS 0.9% 250 ML* 250 ML IVPB SCH (08:47)
[2017-02-21] MEDS: Nicotine PATCH 21 MG/24 HR* PATCH TRANSDERM SCH (08:50)
--- NOTE | 2017-02-21 10:38 | PN ---
Subjective Date of Service: 02/21/17 Interval History: Mr. Gudino states that he is feeling well today. He reports that his left knee pain has improved. He denies chest pain or palpitations. Objective Active Medications: Acetaminophen (Tylenol Tab*) 650 mg PO Q4H PRN Heparin Sodium (Porcine) (Heparin Vial(*)) 5,000 units SUBCUT Q8HR [facility] Vancomycin HCl 1,000 mg/ (Sodium Chloride) 250 mls @ 166.667 mls/hr IVPB Q6H [facility] Nicotine (Nicotine Patch 21 Mg/24 Hr*) 1 patch TRANSDERM DAILY [facility] Pharmacy Consult (Vancomycin Per Pharmacy*) 1 note FOLLOW UP . PRN Pharmacy Profile Note (Vancomycin Trough Check) 1 note FOLLOW UP 0730 ONE Vital Signs 02/20/17 02/20/17 02/20/17 12:02 15:19 19:49 Temperature 98.4 F 97.6 F Pulse Rate 81 71 Respiratory 17 24 16 Rate Blood Pressure 117/64 118/75 (mmHg) O2 Sat by Pulse 99 98 98 Oximetry 02/20/17 02/20/17 02/21/17 20:26 23:38 03:59 Temperature 98.4 F 98.5 F 98.1 F Pulse Rate 90 71 69 Respiratory 24 16 16 Rate Blood Pressure 115/69 120/65 122/71 (mmHg) O2 Sat by Pulse 97 99 97 Oximetry 02/21/17 02/21/17 07:53 08:00 Temperature 98.1 F Pulse Rate 62 Respiratory 16 16 Rate Blood Pressure 120/74 (mmHg) O2 Sat by Pulse 98 Oximetry Oxygen Devices in Use Now: None Appearance: Patient lying in bed in NAD Eyes: No Scleral Icterus Ears/Nose/Mouth/Throat: Mucous Membranes Moist Neck: Trachea Midline Respiratory: Symmetrical Chest Expansion and Respiratory Effort, Clear to Auscultation Cardiovascular: NL Sounds; No Murmurs; No JVD, No Edema Abdominal: NL Sounds; No Tenderness; No Distention Lymphatic: No Cervical Adenopathy Extremities: No Edema Skin: No Rash or Ulcers Neurological: Alert and Oriented x 3, NL Muscle Strength and Tone Nutrition: Taking PO's Result Diagrams: 02/18/17 06:00 02/18/17 05:25 Additional Lab and Data: Lab Results 02/17/17 02/17/17 02/17/17 Range/Units 15:45 15:45 15:45 WBC 20.0 H (3.5-10.8) 10^3/ul RBC 4.79 (4.0-5.4) 10^6/ul Hgb 13.3 L (14.0-18.0) g/dl Hct 40 L (42-52) % MCV 83 (80-94) fL MCH 28 (27-31) pg MCHC 33 (31-36) g/dl RDW 16 H (10.5-15) % Plt Count 245 (150-450) 10^3/ul MPV 8 (7.4-10.4) um3 Neut % (Auto) 90.2 H (38-83) % Lymph % (Auto) 4.4 L (25-47) % Lipscomb % (Auto) 5.0 (1-9) % Eos % (Auto) 0.1 (0-6) % Baso % (Auto) 0.3 (0-2) % Absolute Neuts (auto) 18.0 H (1.5-7.7) 10^3/ul Absolute Lymphs (auto) 0.9 L (1.0-4.8) 10^3/ul Absolute Monos (auto) 1.0 H (0-0.8) 10^3/ul Absolute Eos (auto) 0 (0-0.6) 10^3/ul Absolute Basos (auto) 0.1 (0-0.2) 10^3/ul Absolute Nucleated RBC 0 10^3/ul Nucleated RBC % 0 ESR 77 H (0-14) mm/Hr INR (Anticoag Therapy) 1.27 H (0.89-1.11) APTT 27.0 (26.0-36.3) seconds Fibrinogen 538 H (110.8-404.3) mg/dL Sodium 136 (133-145) mmol/L Potassium 3.6 (3.5-5.0) mmol/L Chloride 100 L (101-111) mmol/L Carbon Dioxide 27 (22-32) mmol/L Anion Gap 9 (2-11) mmol/L BUN 11 (6-24) mg/dL Creatinine 1.05 (0.67-1.17) mg/dL Est GFR ( Amer) 105.3 (>60) Est GFR (Non-Af Amer) 81.9 (>60) BUN/Creatinine Ratio 10.5 (8-20) Glucose 111 H (70-100) mg/dL Lactic Acid (0.5-2.0) mmol/L Calcium 9.5 (8.6-10.3) mg/dL Total Bilirubin 0.70 (0.2-1.0) mg/dL AST 14 (13-39) U/L ALT 14 (7-52) U/L Alkaline Phosphatase 76 (34-104) U/L C-Reactive Protein 194.29 H (< 5.00) mg/L B-Natriuretic Peptide ( - 100) pg/mL Total Protein 8.7 (6.4-8.9) g/dL Albumin 3.9 (3.2-5.2) g/dL Globulin 4.8 H (2-4) g/dL Albumin/Globulin Ratio 0.8 L (1-3) Procalcitonin (<0.6) ng/mL Urine Color Urine Appearance Urine pH (5-9) Ur Specific [place] (1.010-1.030) Urine Protein (Negative) Urine Ketones (Negative) Urine Blood (Negative) Urine Nitrate (Negative) Urine Bilirubin (Negative) Urine Urobilinogen (Negative) Ur Leukocyte Esterase (Negative) Urine WBC (Auto) (Absent) Urine RBC (Auto) (Absent) Ur Squamous Epith Cells (Absent) Urine Bacteria (Absent) Urine Glucose (Negative) Urine Opiates Screen (None Detect) Ur Barbiturates Screen (None Detect) Ur Phencyclidine Scrn (None Detect) Ur Amphetamines Screen (None Detect) U Benzodiazepines Scrn (None Detect) Urine Cocaine Screen (None Detect) U Cannabinoids Screen (None Detect) 02/17/17 02/17/17 02/17/17 Range/Units 15:45 15:45 15:45 WBC (3.5-10.8) 10^3/ul RBC (4.0-5.4) 10^6/ul Hgb (14.0-18.0) g/dl Hct (42-52) % MCV (80-94) fL MCH (27-31) pg MCHC (31-36) g/dl RDW (10.5-15) % Plt Count (150-450) 10^3/ul MPV (7.4-10.4) um3 Neut % (Auto) (38-83) % Lymph % (Auto) (25-47) % Lipscomb % (Auto) (1-9) % Eos % (Auto) (0-6) % Baso % (Auto) (0-2) % Absolute Neuts (auto) (1.5-7.7) 10^3/ul Absolute Lymphs (auto) (1.0-4.8) 10^3/ul Absolute Monos (auto) (0-0.8) 10^3/ul Absolute Eos (auto) (0-0.6) 10^3/ul Absolute Basos (auto) (0-0.2) 10^3/ul Absolute Nucleated RBC 10^3/ul Nucleated RBC % ESR (0-14) mm/Hr INR (Anticoag Therapy) (0.89-1.11) APTT (26.0-36.3) seconds Fibrinogen (110.8-404.3) mg/dL Sodium (133-145) mmol/L Potassium (3.5-5.0) mmol/L Chloride (101-111) mmol/L Carbon Dioxide (22-32) mmol/L Anion Gap (2-11) mmol/L BUN (6-24) mg/dL Creatinine (0.67-1.17) mg/dL Est GFR ( Amer) (>60) Est GFR (Non-Af Amer) (>60) BUN/Creatinine Ratio (8-20) Glucose (70-100) mg/dL Lactic Acid 2.0 (0.5-2.0) mmol/L Calcium (8.6-10.3) mg/dL Total Bilirubin (0.2-1.0) mg/dL AST (13-39) U/L ALT (7-52) U/L Alkaline Phosphatase (34-104) U/L C-Reactive Protein (< 5.00) mg/L B-Natriuretic Peptide 54 ( - 100) pg/mL Total Protein (6.4-8.9) g/dL Albumin (3.2-5.2) g/dL Globulin (2-4) g/dL Albumin/Globulin Ratio (1-3) Procalcitonin 0.7 H (<0.6) ng/mL Urine Color Urine Appearance Urine pH (5-9) Ur Specific [place] (1.010-1.030) Urine Protein (Negative) Urine Ketones (Negative) Urine Blood (Negative) Urine Nitrate (Negative) Urine Bilirubin (Negative) Urine Urobilinogen (Negative) Ur Leukocyte Esterase (Negative) Urine WBC (Auto) (Absent) Urine RBC (Auto) (Absent) Ur Squamous Epith Cells (Absent) Urine Bacteria (Absent) Urine Glucose (Negative) Urine Opiates Screen (None Detect) Ur Barbiturates Screen (None Detect) Ur Phencyclidine Scrn (None Detect) Ur Amphetamines Screen (None Detect) U Benzodiazepines Scrn (None Detect) Urine Cocaine Screen (None Detect) U Cannabinoids Screen (None Detect) 02/17/17 02/17/17 02/17/17 Range/Units 17:14 17:14 19:50 WBC (3.5-10.8) 10^3/ul RBC (4.0-5.4) 10^6/ul Hgb (14.0-18.0) g/dl Hct (42-52) % MCV (80-94) fL MCH (27-31) pg MCHC (31-36) g/dl RDW (10.5-15) % Plt Count (150-450) 10^3/ul MPV (7.4-10.4) um3 Neut % (Auto) (38-83) % Lymph % (Auto) (25-47) % Lipscomb % (Auto) (1-9) % Eos % (Auto) (0-6) % Baso % (Auto) (0-2) % Absolute Neuts (auto) (1.5-7.7) 10^3/ul Absolute Lymphs (auto) (1.0-4.8) 10^3/ul Absolute Monos (auto) (0-0.8) 10^3/ul Absolute Eos (auto) (0-0.6) 10^3/ul Absolute Basos (auto) (0-0.2) 10^3/ul Absolute Nucleated RBC 10^3/ul Nucleated RBC % ESR (0-14) mm/Hr INR (Anticoag Therapy) (0.89-1.11) APTT (26.0-36.3) seconds Fibrinogen (110.8-404.3) mg/dL Sodium (133-145) mmol/L Potassium (3.5-5.0) mmol/L Chloride (101-111) mmol/L Carbon Dioxide (22-32) mmol/L Anion Gap (2-11) mmol/L BUN (6-24) mg/dL Creatinine (0.67-1.17) mg/dL Est GFR ( Amer) (>60) Est GFR (Non-Af Amer) (>60) BUN/Creatinine Ratio (8-20) Glucose (70-100) mg/dL Lactic Acid 1.8 (0.5-2.0) mmol/L Calcium (8.6-10.3) mg/dL Total Bilirubin (0.2-1.0) mg/dL AST (13-39) U/L ALT (7-52) U/L Alkaline Phosphatase (34-104) U/L C-Reactive Protein (< 5.00) mg/L B-Natriuretic Peptide ( - 100) pg/mL Total Protein (6.4-8.9) g/dL Albumin (3.2-5.2) g/dL Globulin (2-4) g/dL Albumin/Globulin Ratio (1-3) Procalcitonin (<0.6) ng/mL Urine Color Yellow Urine Appearance Clear Urine pH 5.0 (5-9) Ur Specific [place] 1.014 (1.010-1.030) Urine Protein Negative (Negative) Urine Ketones Negative (Negative) Urine Blood 3+ H (Negative) Urine Nitrate Negative (Negative) Urine Bilirubin Negative (Negative) Urine Urobilinogen Negative (Negative) Ur Leukocyte Esterase Negative (Negative) Urine WBC (Auto) Trace(0-5/hpf) (Absent) Urine RBC (Auto) 1+(3-5/hpf) H (Absent) Ur Squamous Epith Cells Present H (Absent) Urine Bacteria Absent (Absent) Urine Glucose Negative (Negative) Urine Opiates Screen None detected (None Detect) Ur Barbiturates Screen None detected (None Detect) Ur Phencyclidine Scrn None detected (None Detect) Ur Amphetamines Screen Presumptive positive H (None Detect) U Benzodiazepines Scrn None detected (None Detect) Urine Cocaine Screen None detected (None Detect) U Cannabinoids Screen None detected (None Detect) 02/18/17 02/18/17 Range/Units 05:25 06:00 WBC 14.5 H (3.5-10.8) 10^3/ul RBC 4.14 (4.0-5.4) 10^6/ul Hgb 11.4 L (14.0-18.0) g/dl Hct 35 L (42-52) % MCV 84 (80-94) fL MCH 28 (27-31) pg MCHC 33 (31-36) g/dl RDW 16 H (10.5-15) % Plt Count 167 (150-450) 10^3/ul MPV 9 (7.4-10.4) um3 Neut % (Auto) 80.1 (38-83) % Lymph % (Auto) 5.9 L (25-47) % Lipscomb % (Auto) 12.9 H (1-9) % Eos % (Auto) 0.7 (0-6) % Baso % (Auto) 0.4 (0-2) % Absolute Neuts (auto) 11.6 H (1.5-7.7) 10^3/ul Absolute Lymphs (auto) 0.9 L (1.0-4.8) 10^3/ul Absolute Monos (auto) 1.9 H (0-0.8) 10^3/ul Absolute Eos (auto) 0.1 (0-0.6) 10^3/ul Absolute Basos (auto) 0.1 (0-0.2) 10^3/ul Absolute Nucleated RBC 0 10^3/ul Nucleated RBC % 0 ESR (0-14) mm/Hr INR (Anticoag Therapy) (0.89-1.11) APTT (26.0-36.3) seconds Fibrinogen (110.8-404.3) mg/dL Sodium 139 (133-145) mmol/L Potassium 3.9 (3.5-5.0) mmol/L Chloride 108 (101-111) mmol/L Carbon Dioxide 24 (22-32) mmol/L Anion Gap 7 (2-11) mmol/L BUN 12 (6-24) mg/dL Creatinine 0.65 L (0.67-1.17) mg/dL Est GFR ( Amer) 183.1 (>60) Est GFR (Non-Af Amer) 142.4 (>60) BUN/Creatinine Ratio 18.5 (8-20) Glucose 111 H (70-100) mg/dL Lactic Acid (0.5-2.0) mmol/L Calcium 8.2 L (8.6-10.3) mg/dL Total Bilirubin (0.2-1.0) mg/dL AST (13-39) U/L ALT (7-52) U/L Alkaline Phosphatase (34-104) U/L C-Reactive Protein (< 5.00) mg/L B-Natriuretic Peptide ( - 100) pg/mL Total Protein (6.4-8.9) g/dL Albumin (3.2-5.2) g/dL Globulin (2-4) g/dL Albumin/Globulin Ratio (1-3) Procalcitonin (<0.6) ng/mL Urine Color Urine Appearance Urine pH (5-9) Ur Specific [place] (1.010-1.030) Urine Protein (Negative) Urine Ketones (Negative) Urine Blood (Negative) Urine Nitrate (Negative) Urine Bilirubin (Negative) Urine Urobilinogen (Negative) Ur Leukocyte Esterase (Negative) Urine WBC (Auto) (Absent) Urine RBC (Auto) (Absent) Ur Squamous Epith Cells (Absent) Urine Bacteria (Absent) Urine Glucose (Negative) Urine Opiates Screen (None Detect) Ur Barbiturates Screen (None Detect) Ur Phencyclidine Scrn (None Detect) Ur Amphetamines Screen (None Detect) U Benzodiazepines Scrn (None Detect) Urine Cocaine Screen (None Detect) U Cannabinoids Screen (None Detect) Microbiology and Other Data: Microbiology 02/19/17 19:21 Anaerobic Blood Culture - Final Blood Venous Assess/Plan/Problems-Billing Assessment: Mr. Gudino is a 31 yo male with a PMH of HTN who was admitted on 02/17/17 with acute febrile illness. - Patient Problems (1) Endocarditis due to Staphylococcus Comment: - Fever resolved. Leukocytosis resolving. ESR and CRP elevated on arrival. - Blood cultures positive for MRSA and transthoracic echo with vegetation on tricuspid valve, mild to moderate regurgitation noted. - Repeat cultures from 02/19/17 continue to show staph. - Patient has history of heroin abuse in the past but does deny recent injections. - Appreciate ID consult, continue vancomycin. Will need 6 weeks of IV abx. (2) Left knee pain Comment: - Appreciate ortho consult. No overt evidence of infection or effusion. - MRI knee pending. (3) Hypertension Comment: - SBP 80-110s. - Hold lisinopril. (4) Full code status (5) DVT prophylaxis Comment: - Heparin SQ. Status and Disposition: Inpatient. Will need 6 weeks of IV antibiotics.
--- NOTE | 2017-02-21 11:34 | RAD ---
Indication: Left knee pain, bacteremia. Image Sequences: Sagittal proton density, fat-suppressed proton density, coronal T1, proton density, STIR, and axial fat-suppressed proton density images of the knee were obtained. The medial meniscus is normal in morphology. No abnormal signal is present to suggest a tear. The lateral meniscus is normal in morphology. No abnormal signal is present to suggest a tear. The anterior and posterior cruciate ligaments appear intact. The quadriceps and infrapatellar tendon are intact. Small joint effusion is noted. Minimal bone marrow edema is noted in the patella. The patellofemoral joint is well-preserved. IMPRESSION: No definite meniscal tear or ligamentous injury is noted. Trace joint effusion is noted. No drainable fluid collections are noted.
--- NOTE | 2017-02-21 11:44 | PN ---
Progress Note - Progress Note Date of Service: 02/21/17 SOAP: Subjective: CC: endocarditis HPI: 31 yo man past IVDU with fever, myalgia, left knee pain. MRSA bacteremia, positive echo. Fever improved. Left knee much improved, can bear weight. No rash or diarrhea. No IVDU >6 months. Objective: [] Vital Signs Temp 36.7 C 02/21/17 07:53 Pulse 62 02/21/17 07:53 Resp 16 02/21/17 08:00 BP 120/74 02/21/17 07:53 Pulse Ox 98 02/21/17 07:53 Intake & Output 02/20/17 02/21/17 02/21/17 18:59 06:59 18:59 Intake Total 2004 1530 Output Total 750 Balance 2004 780 Intake: IV Fluids 295 30 ABX - VANCOMYCIN 265 30 NS (0.9%) 30 IVPB 260 NS (0.9%) 260 Oral 1710 1240 Output: Urine 750 Other: Estimated Void Medium # Bowel Movements 0 # Voids 3 3 Gen:awake, no distress HEENT:PERRL, MMM Neck:Supple Heart:RRR no murmur Lungs:CTA BL Abd:+BS NTND soft Skin: no rash MSK: no spine tenderness, small left knee effusion, non tender, ROM intact Laboratory Results - last 24 hr 02/21/17 07:34 Vancomycin Trough 8.6 Microbiology 02/19/17 19:16 Aerobic Blood Culture - Final Blood Venous MRSA Anaerobic Blood Culture - Final MRSA Blood Culture - Final 02/19/17 19:21 Aerobic Blood Culture - Final Blood Venous MRSA Anaerobic Blood Culture - Final MRSA Blood Culture - Final Blood MRSA/MSSA (PCR) - Final Mrsa Positive S.aureus Positive Trans thoracic echo: TV vegetation and tricuspid regurgitation Assessment: 1. MRSA bacteremia, persists 2. MRSA infective endocarditis, tricuspid valve; suspect due to previous TV damage due to past injection drug use; no stigmata of active injection 3. Left knee pain and effusion, improved so doubt septic joint, could be immune complex mediated due to endocarditis 4. Hepatitis C, chronic 5. tricuspid regurgitation Plan: 1. continue vancomycin goal tr 15-20, recheck BC, when negative can have PICC. 4 weeks vancomycin from time of negative BC. 35 minutes floor time >50% face to face time discussing antibiotic treatment options.
[2017-02-21] MEDS: Vancomycin(*) 1,000 MG in NS 0.9% 250 ML* 250 ML IVPB SCH ×2 (14:32→19:44)
[2017-02-22] MEDS: Vancomycin(*) 1,000 MG in NS 0.9% 250 ML* 250 ML IVPB SCH ×4 (02:25→20:21)
[2017-02-22] MEDS: Heparin VIAL(*) 5000 UNITS/ML VIAL (FIVE THOUSAND) SUBCUT SCH ×3 (06:33→23:45)
[2017-02-22] MEDS: Nicotine PATCH 21 MG/24 HR* PATCH TRANSDERM SCH (07:45)
--- NOTE | 2017-02-22 10:05 | PN ---
Subjective Date of Service: 02/22/17 Interval History: Patient seen and examined at bedside. Pt states that he is feeling well this morning. Denies fever, chills, shortness of breath, chest discomfort, N/V/D. Family History: Unchanged from Admission Social History: Unchanged from Admission Past Medical History: Unchanged from Admission Objective Active Medications: Acetaminophen (Tylenol Tab*) 650 mg PO Q4H PRN Reason: FEVER/PAIN Heparin Sodium (Porcine) (Heparin Vial(*)) 5,000 units SUBCUT Q8HR [facility] Vancomycin HCl 1,000 mg/ (Sodium Chloride) 250 mls @ 166.667 mls/hr IVPB Q6H [facility] Nicotine (Nicotine Patch 21 Mg/24 Hr*) 1 patch TRANSDERM DAILY [facility] Pharmacy Consult (Vancomycin Per Pharmacy*) 1 note FOLLOW UP . PRN Reason: PER PROTOCOL Pharmacy Profile Note (Vancomycin Trough Check) 1 note FOLLOW UP 07 ONE Stop : 02/23/17 07:31 Vital Signs 02/21/17 02/21/17 02/21/17 12:05 15:48 20:00 Temperature 97.8 F 98.5 F Pulse Rate 58 67 Respiratory 16 24 16 Rate Blood Pressure 130/80 125/77 (mmHg) O2 Sat by Pulse 100 100 Oximetry 02/21/17 02/21/17 02/22/17 20:35 23:53 04:11 Temperature 98.4 F 98.5 F 98.4 F Pulse Rate 80 81 69 Respiratory 20 16 16 Rate Blood Pressure 109/62 115/65 115/67 (mmHg) O2 Sat by Pulse 99 98 99 Oximetry 02/22/17 02/22/17 07:23 09:38 Temperature 97.8 F Pulse Rate 60 Respiratory 18 20 Rate Blood Pressure 108/65 (mmHg) O2 Sat by Pulse 98 Oximetry Oxygen Devices in Use Now: None Appearance: NAD, laying in bed Eyes: No Scleral Icterus Ears/Nose/Mouth/Throat: Mucous Membranes Moist Respiratory: Symmetrical Chest Expansion and Respiratory Effort, Clear to Auscultation Cardiovascular: NL Sounds; No Murmurs; No JVD, RRR Abdominal: NL Sounds; No Tenderness; No Distention Extremities: No Edema Skin: No Rash or Ulcers Neurological: Alert and Oriented x 3, NL Muscle Strength and Tone Lines/Tubes/Other Access: Clean, Dry and Intact Peripheral IV - site benign Nutrition: Taking PO's Result Diagrams: 02/18/17 06:00 02/18/17 05:25 Additional Lab and Data: Microbiology and Other Data: Microbiology 02/19/17 19:21 Anaerobic Blood Culture - Final Blood Venous Assess/Plan/Problems-Billing Assessment: Mr. Gudino is a 31 yo male with a PMH of HTN who was admitted on 02/17/17 with acute febrile illness and found to have MRSA bacteremia and endocarditis. - Patient Problems (1) Endocarditis due to Staphylococcus Code(s): I33.0 - ACUTE AND SUBACUTE INFECTIVE ENDOCARDITIS; B95.8 - UNSP STAPHYLOCOCCUS THE CAUSE OF DISEASES [facility] SNOMED Code(s): 08138502 Comment: - Fever resolved, afebrile since 02/18. Leukocytosis resolving. ESR and CRP elevated on arrival. - Blood cultures positive for MRSA and transthoracic echo with vegetation on tricuspid valve, mild to moderate regurgitation noted. - Repeat blood cultures from 02/19/17 continue to show staph. - Repeat blood cultures from 02/22/17 pending. - Patient has history of heroin abuse in the past but does deny recent injections. - Appreciate ID consult, continue vancomycin. Will need 4-6 weeks of IV abx. - Will plan to place a PICC after blood cultures clear. (2) Left knee pain Code(s): M25.562 - PAIN IN LEFT KNEE SNOMED Code(s): 17560558 Comment: - Appreciate ortho consult. No overt evidence of infection or effusion. - MRI left knee - no definite meniscal tear or ligamentous injury noted, trace joint effusion. No drainable fluid collections noted. (3) Hypertension Code(s): I10 - ESSENTIAL (PRIMARY) HYPERTENSION SNOMED Code(s): 74153447 Comment: - SBP 80-130s. - Hold lisinopril. (4) DVT prophylaxis Code(s): QXP0214 - SNOMED Code(s): 105996012 Comment: - Heparin SQ. (5) Full code status Code(s): Z78.9 - OTHER SPECIFIED HEALTH STATUS SNOMED Code(s): 664720950 Status and Disposition: Inpatient. Will need 4-6 weeks of IV antibiotics.
[2017-02-23] MEDS: Vancomycin(*) 1,000 MG in NS 0.9% 250 ML* 250 ML IVPB SCH ×4 (02:47→22:05)
[2017-02-23] MEDS: Heparin VIAL(*) 5000 UNITS/ML VIAL (FIVE THOUSAND) SUBCUT SCH ×3 (06:32→22:09)
[2017-02-23] MEDS ORDERED: Vancomycin Trough Check NOTE FOLLOW UP ONE (07:30)
[2017-02-23 08:04] LABS: EGFR African American 176.8 (>60); EGFR Non-African American 137.5 (>60)
[2017-02-23 08:38] LABS: Vancomycin Trough 13.8 mcg/mL
--- NOTE | 2017-02-23 09:32 | PN ---
Progress Note - Progress Note Date of Service: 02/23/17 SOAP: Subjective: CC: endocarditis HPI: 31 yo man past IVDU with fever, myalgia, left knee pain. MRSA bacteremia, positive echo. Fever resolved. Left knee much improved, can bear weight without pain. No rash or diarrhea. No IVDU >6 months. Objective: [] Vital Signs Temp 36.8 C 02/23/17 03:37 Pulse 55 02/23/17 03:37 Resp 20 02/23/17 03:37 BP 110/58 02/23/17 03:37 Pulse Ox 99 02/23/17 03:37 Intake & Output 02/22/17 02/23/17 02/23/17 18:59 06:59 18:59 Intake Total 2220 1420 Output Total 900 0 Balance 1320 1420 Intake: IV Fluids 215 540 ABX - VANCOMYCIN 500 NS (0.9%) 215 40 IVPB 545 ABX - VANCOMYCIN 545 Oral 1460 880 Output: Urine 900 0 Other: # Bowel Movements 0 # Voids 2 Gen:awake, no distress HEENT:PERRL, MMM Neck:Supple Heart:RRR no murmur Lungs:CTA BL Abd:+BS NTND soft Skin: no rash MSK: no spine tenderness, small left knee effusion, non tender, ROM intact Laboratory Results - last 24 hr 02/23/17 07:30 BUN 10 Creatinine 0.67 Est GFR ( Amer) 176.8 Est GFR (Non-Af Amer) 137.5 Vancomycin Trough 13.8 Assessment: 1. MRSA bacteremia, neg at 24 hrs 2. MRSA infective endocarditis, tricuspid valve; suspect due to previous TV damage due to past injection drug use; no stigmata of active injection 3. Left knee pain and effusion, improved, could be immune complex mediated due to endocarditis 4. Hepatitis C, chronic 5. tricuspid regurgitation Plan: 1. vancomycin goal tr 15-20 day 09/28 (since negative BC), when negative at 48 hrs can have PICC. weekly cbc, cmp, crp, vanco trough Discussed with Eder Hood NP
--- NOTE | 2017-02-23 09:49 | PN ---
Subjective Date of Service: 02/23/17 Interval History: Patient seen and examined at bedside. Denies fever, chills, shortness of breath , chest discomfort, N/V/D. Pt reports that left knee pain has improved and he is able to bear weight on the leg. Discussed with Pt the need to have SNF placement to complete his course of ABX. Pt agrees and is interested in [facility]. Family History: Unchanged from Admission Social History: Unchanged from Admission Past Medical History: Unchanged from Admission Objective Active Medications: Acetaminophen (Tylenol Tab*) 650 mg PO Q4H PRN Reason: FEVER/PAIN Heparin Sodium (Porcine) (Heparin Vial(*)) 5,000 units SUBCUT Q8HR [facility] Vancomycin HCl 1,000 mg/ (Sodium Chloride) 250 mls @ 166.667 mls/hr IVPB Q6H [facility] Nicotine (Nicotine Patch 21 Mg/24 Hr*) 1 patch TRANSDERM DAILY [facility] Pharmacy Consult (Vancomycin Per Pharmacy*) 1 note FOLLOW UP . PRN Reason: PER PROTOCOL Vital Signs 02/22/17 02/22/17 02/22/17 15:41 19:50 20:30 Temperature 97.9 F 98.7 F Pulse Rate 57 67 Respiratory 22 24 16 Rate Blood Pressure 122/67 115/60 (mmHg) O2 Sat by Pulse 100 97 Oximetry 02/22/17 02/23/17 23:41 03:37 Temperature 98.2 F 98.2 F Pulse Rate 69 55 Respiratory 16 20 Rate Blood Pressure 119/67 110/58 (mmHg) O2 Sat by Pulse 99 99 Oximetry Oxygen Devices in Use Now: None Appearance: NAD, laying in bed Eyes: No Scleral Icterus Ears/Nose/Mouth/Throat: Mucous Membranes Moist Respiratory: Symmetrical Chest Expansion and Respiratory Effort, Clear to Auscultation Cardiovascular: NL Sounds; No Murmurs; No JVD, RRR Skin: No Rash or Ulcers Neurological: Alert and Oriented x 3, NL Muscle Strength and Tone Lines/Tubes/Other Access: Clean, Dry and Intact Peripheral IV - site benign Nutrition: Taking PO's Result Diagrams: 02/18/17 06:00 02/23/17 07:30 Additional Lab and Data: Microbiology and Other Data: Microbiology 02/19/17 19:21 Anaerobic Blood Culture - Final Blood Venous Assess/Plan/Problems-Billing Assessment: Mr. Gudino is a 31 yo male with a PMH of HTN who was admitted on 02/17/17 with acute febrile illness and found to have MRSA bacteremia and endocarditis. - Patient Problems (1) Endocarditis due to Staphylococcus Code(s): I33.0 - ACUTE AND SUBACUTE INFECTIVE ENDOCARDITIS; B95.8 - UNSP STAPHYLOCOCCUS THE CAUSE OF DISEASES [facility] [place] SNOMED Code(s): 11315265 Comment: - Fever resolved, afebrile since 02/18. Leukocytosis resolving. ESR and CRP elevated on arrival. - Blood cultures positive for MRSA and transthoracic echo with vegetation on tricuspid valve, mild to moderate regurgitation noted. - Repeat blood cultures from 02/19/17 continue to show staph. - Repeat blood cultures from 02/22/17 no growth, day 1. - Patient has history of heroin abuse in the past but does deny recent injections. - Appreciate ID consult. Will need 4 weeks of IV abx with weekly CBC, CMP, CRP and vanco trough. - Will plan to place a PICC 48 after blood cultures clear. - Continue vancomycin (2) Left knee pain Code(s): M25.562 - PAIN IN LEFT KNEE SNOMED Code(s): 52543880 Comment: - Pain improving and Pt is able to bear weight - Appreciate ortho consult. No overt evidence of infection or effusion. - MRI left knee - no definite meniscal tear or ligamentous injury noted, trace joint effusion. No drainable fluid collections noted. (3) Hypertension Code(s): I10 - ESSENTIAL (PRIMARY) HYPERTENSION SNOMED Code(s): 38000295 Comment: - SBP 100s-120s. - Hold lisinopril. (4) DVT prophylaxis Code(s): HJW0479 - SNOMED Code(s): 982214935 Comment: - Heparin SQ. (5) Full code status Code(s): Z78.9 - OTHER SPECIFIED HEALTH STATUS SNOMED Code(s): 931120032 Status and Disposition: Inpatient. Will need 4 weeks of IV antibiotics at a SNF.
[2017-02-23] MEDS: Nicotine PATCH 21 MG/24 HR* PATCH TRANSDERM SCH (09:54)
[2017-02-24] MEDS: Vancomycin(*) 1,000 MG in NS 0.9% 250 ML* 250 ML IVPB SCH ×3 (03:41→14:06)
--- NOTE | 2017-02-24 06:03 | DS ---
CC: Dr. Yaw Bullock; [facility] * DISCHARGE SUMMARY: DATE OF ADMISSION: 02/17/17 DATE OF DISCHARGE: 02/24/17 ATTENDING PHYSICIAN: Dr. Rafael Hercules * (dictated by Kaye Enrique NP) PRIMARY CARE PROVIDER: Dr. Yaw Bullock. PRIMARY DIAGNOSES: 1. 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 2. MRSA bacteremia, negative at 24 hours. 3. Left knee pain and effusion, improving. Suspect could be related to immune complex mediated due to endocarditis. 4. Tricuspid regurgitation. SECONDARY DIAGNOSES: 1. Hypertension. 2. Chronic hepatitis C. CONSULTATIONS WHILE IN THE HOSPITAL: Dr. Ethan Dupree with Infectious Disease, Dr. Jyoti Hein with Orthopedic. STUDIES WHILE IN THE HOSPITAL: 1. Chest x-ray on 02/17/17. Radiologist's impression: No evidence for acute intrathoracic disease. 2. Brain CT on 02/17/17. Radiologist's impression: No acute intracranial pathology. 3. Transthoracic echocardiogram on 02/18/17. Furnace Repair Mechanic's conclusion: The left ventricular chamber size is normal. Mild concentric left ventricular hypertrophy is observed. The left ventricular systolic function is at the lower limits of normal. The estimated ejection fraction is 50% to 55%. The left atrial chamber size is normal. The left ventricular chamber size and systolic function are within normal limits. There is a subcentimeter echodensity attached to the tricuspid valve as described within the report associated with mild to moderate highly eccentric tricuspid regurgitation. In the setting of IVDA and bacteremia, this is consistent with infectious endocarditis. Compared to prior study from 06/20/10, LVEF has improved from 30 % to 35%, endocarditis is now present. 4. Left knee x-ray on 02/18/17. Radiologist's impression: Small joint effusion. 5. Left knee MRI from 02/21/17. Radiologist's impression: No definite meniscal tear or ligamentous injury is noted. Trace joint effusion is noted. No drainable fluid collections are noted. DISCHARGE MEDICATIONS: 1. Heparin flushes 1 mL flush every 8 hours after IV antibiotics. 2. Sodium chloride flushes as directed. 3. Vancomycin 1250 mg IV every 8 hours for 26 days. 4. Acetaminophen 650 mg oral every 4 hours as needed for pain. 5. Nicotine patch 21 mg patch transdermal daily. Discontinued home mediations: Lisinopril. HISTORY OF PRESENT ILLNESS/HOSPITAL COURSE: Mr. Gudino is a 31-year-old male with past medical history significant for congestive heart failure, asthma, renal artery stenosis, and chronic hep C who presented to the emergency room with complaints of not feeling well for 3 to 4 days after he had been [place] and [place]. The patient had noted that he had gotten into poison jesus manuel and had 2 small areas on his right arm and leg. The patient had not been feeling well since camping. He denied any contacts with people with similar symptoms. He reported fever, chills, lightheadedness, and dizziness. He denied any chest pain, shortness of breath, cough, or urinary symptoms. He was unaware of any tick bites. He denied recent IV drug use stating that his last use was in May 2016. Due to the patient's symptoms, he presented to the emergency room for further evaluation. While in the emergency room, the patient was noted to be febrile with a temperature up to 102. He had labs showing a significant white count of 20. He had an ESR of 77, a CRP of 194.29, a procalcitonin of 0.70, fibrinogen of 538. The patient had an EKG showing sinus tachycardia. Chest x-ray showing no intrathoracic disease and a head CT showing no intracranial pathology. Due to the patient's presenting symptoms of a fever, Hospitalists were asked to evaluate the patient for admission. While in the hospital, initially it was felt this could possibly be a viral syndrome or Lyme disease. The patient had blood cultures drawn while in the emergency room. He also had Lyme serology sent. The patient was meeting sepsis criteria on admission with fever, tachycardia, and leukocytosis. He was not meeting sepsis criteria with the qSOFA. He was nontoxic appearing at the time of admission. During the patient's stay, his initial set of blood cultures grew MRSA in 4/4 bottles. He was then seen in consultation by Dr. Ethan Dupree, and the patient underwent a transthoracic echocardiogram showing a tricuspid valve vegetation consistent with an infective endocarditis. The patient was placed on vancomycin. The patient had repeat blood cultures drawn on 02/19/17 again with 4/4 bottles positive for MRSA. On 02/22/17, the patient had blood cultures again redrawn which on day 1 had no growth. Overall, the patient has been feeling better. He was also reporting left knee pain. He was seen in consultation by Dr. Jyoti Hein with Orthopedic Surgery who recommended an MRI. The patient had an MRI showing a small effusion and no other significant findings. It was not felt that the effusion was big enough to get a needle aspiration. The patient has remained afebrile since 02/18/17. His leukocytosis was improving, although last checked on 02/18/17. The patient's Lyme disease serology came back negative. It was recommended from Infectious Disease that the patient be continued on 28 days of vancomycin once his blood cultures were negative. Due to the patient's history of past IV drug use, it was felt that the patient needed to be placed in a monitored facility such as a fci to complete his antibiotics. The patient was offered a bed at [facility]. At this point, the plan is if the patient's blood cultures remain negative tomorrow, he will have a PICC line placed and will be ready for discharge to [facility] to continue his course of IV antibiotics. Mr. Gudino is stable for discharge to [facility] on 02/24/17. Vital signs are as follows: Temperature 97.7, heart rate 72, respiratory rate 24, O2 sat 99% on room air, blood pressure 119/76. DISCHARGE PLAN: Mr. Gudino will be discharged to [facility] on . ACTIVITY: As tolerated. DIET: Regular. As far as the patient's MRSA bacteremia, at this point on 02/23/17, the patient has been negative at 24 hours. If he remains negative at 48 hours tomorrow, he will get a PICC line placed and will be ready for discharge to [facility]. For the patient's MRSA infective endocarditis on his tricuspid valve, it is suspected this is related to damage due to past injection drug use. The patient will need to be continued on vancomycin with a trough goal of 15 to 20. He is currently on day 2 of 28. The patient will be on vancomycin 1250 mg IV every 8 hours. He will need weekly CBC, CMP, CRP, and vancomycin trough. He should have a follow-up echocardiogram in 3 weeks. The patient is a smoker and should be continued on nicotine replacement. For the patient's history of hypertension, during his hospitalization, his vital signs have been normotensive to intermittently hypotensive and the patient's lisinopril has been held. This may need to be restarted in the future if he becomes hypertensive again. The patient should be seen in followup by Dr. Dupree per his recommendations. He should also be seen in follow-up by his PCP or a provider at [facility] per their protocol. This is a summarized report of a complex medical history and hospital stay. For further details, please see the entire medical record. TIME SPENT: Time for this discharge was 50 minutes, greater than half of that was spent with the patient discussing discharge plans and instructions. CONDITION ON DISCHARGE: Stable. Reviewed by ROME SALMON 02/24/17 1144 [id number]/[facility] #: [id number] NENO
[2017-02-24] MEDS: Heparin VIAL(*) 5000 UNITS/ML VIAL (FIVE THOUSAND) SUBCUT SCH (06:39)
--- NOTE | 2017-02-24 08:22 | DCNOTE ---
Subjective Date of Service: 02/24/17 Interval History: Patient seen and examined at bedside. Patient reports feeling distressed; he is aware of his pending discharge to [facility] today. Patient also has a phone court date prior to discharge. He offers no specific complaint and denies fever/chills, chest pain, SOB. He reports that his left knee "feels fine." No other acute medical concerns expressed at this time. Family History: Unchanged from Admission Social History: Unchanged from Admission Past Medical History: Unchanged from Admission Objective Active Medications: Acetaminophen (Tylenol Tab*) 650 mg PO Q4H PRN PRN Reason: FEVER/PAIN Last Admin: 02/19/17 03:29 Dose: 650 mg Heparin Sodium (Porcine) (Heparin Vial(*)) 5,000 units SUBCUT Q8HR [facility] Last Admin: 02/24/17 06:39 Dose: 5,000 units Vancomycin HCl 1,000 mg/ (Sodium Chloride) 250 mls @ 166.667 mls/hr IVPB Q6H [facility] Last Admin: 02/24/17 07:57 Dose: 166.667 mls/hr Nicotine (Nicotine Patch 21 Mg/24 Hr*) 1 patch TRANSDERM DAILY [facility] Last Admin: 02/23/17 09:54 Dose: 1 patch Pharmacy Consult (Vancomycin Per Pharmacy*) 1 note FOLLOW UP . PRN PRN Reason: PER PROTOCOL Vital Signs 02/23/17 02/23/17 02/23/17 15:45 22:05 23:35 Temperature 97.7 F 98.8 F Pulse Rate 72 89 Respiratory 24 20 16 Rate Blood Pressure 119/76 145/80 (mmHg) O2 Sat by Pulse 99 98 Oximetry 02/24/17 03:33 Temperature 98.3 F Pulse Rate 95 Respiratory 16 Rate Blood Pressure 131/75 (mmHg) O2 Sat by Pulse 99 Oximetry Oxygen Devices in Use Now: None Appearance: Young male, lying in bed, NAD Eyes: No Scleral Icterus Ears/Nose/Mouth/Throat: Clear Oropharnyx, Mucous Membranes Moist Neck: NL Appearance and Movements; NL JVP Respiratory: Symmetrical Chest Expansion and Respiratory Effort, Clear to Auscultation Cardiovascular: NL Sounds; No Murmurs; No JVD, RRR Abdominal: NL Sounds; No Tenderness; No Distention Extremities: No Edema Neurological: Alert and Oriented x 3, NL Muscle Strength and Tone Lines/Tubes/Other Access: Clean, Dry and Intact Peripheral IV Nutrition: Taking PO's Result Diagrams: 02/18/17 06:00 02/23/17 07:30 Additional Lab and Data: Microbiology and Other Data: Microbiology 02/19/17 19:21 Anaerobic Blood Culture - Final Blood Venous Assess/Plan/Problems-Billing Assessment: Mr. Gudino is a 31 yo male with a PMH of HTN who was admitted on 02/17/17 with acute febrile illness and found to have MRSA bacteremia and endocarditis. - Patient Problems (1) Endocarditis due to Staphylococcus Code(s): I33.0 - ACUTE AND SUBACUTE INFECTIVE ENDOCARDITIS; B95.8 - UNSP STAPHYLOCOCCUS THE CAUSE OF DISEASES CLASSD [id number] Comment: - Fever resolved, afebrile since 02/18. Leukocytosis resolving. ESR and CRP elevated on arrival. - Blood cultures positive for MRSA and transthoracic echo with vegetation on tricuspid valve, mild to moderate regurgitation noted. - Repeat blood cultures from 02/19/17 continue to show staph. - Repeat blood cultures from 02/22/17 no growth x 2 days. - Patient has history of heroin abuse in the past but does deny recent injections. - Appreciate ID consult. Will need 4 weeks of IV abx with weekly CBC, CMP, CRP and vanco trough. - PICC placement today for continued outpatient abx - Continue vancomycin (2) Left knee pain Code(s): M25.562 - PAIN IN LEFT KNEE Comment: - Pain improving, pt is able to bear weight - Appreciate ortho consult. No overt evidence of infection or effusion. - MRI left knee - no definite meniscal tear or ligamentous injury noted, trace joint effusion. No drainable fluid collections noted. (3) Hypertension Code(s): I10 - ESSENTIAL (PRIMARY) HYPERTENSION Comment: - Normotensive - Hold lisinopril. (4) DVT prophylaxis Comment: - Heparin SQ. (5) Full code status Code(s): Z78.9 - OTHER SPECIFIED HEALTH STATUS Status and Disposition: Inpatient. Will need 4 weeks of IV antibiotics at a SNF. Plan for discharge to [facility] today.
--- NOTE | 2017-02-24 10:44 | PN ---
Progress Note - Progress Note Date of Service: 02/24/17 SOAP: Subjective: CC: endocarditis HPI: 31 yo man past IVDU with fever, myalgia, left knee pain. MRSA bacteremia, positive echo. No pain, rash, fever, or diarrhea. Objective: [] Vital Signs Temp 36.8 C 02/24/17 03:33 Pulse 95 02/24/17 03:33 Resp 16 02/24/17 03:33 BP 131/75 02/24/17 03:33 Pulse Ox 99 02/24/17 03:33 Intake & Output 02/23/17 02/24/17 02/24/17 18:59 06:59 18:59 Intake Total 2300 710 Output Total 0 Balance 2300 710 Intake: IV Fluids 250 270 ABX - VANCOMYCIN 250 250 NS (0.9%) 20 Oral 2050 440 Output: Urine 0 Other: Estimated Void Medium # Bowel Movements 0 # Voids 3 2 Gen:awake, no distress HEENT:PERRL, MMM Neck:Supple Heart:RRR no murmur Lungs:CTA BL Abd:+BS NTND soft Skin: no rash MSK: no spine tenderness, no joint synovitis Assessment: 1. MRSA infective endocarditis, tricuspid valve; suspect due to previous TV damage due to past injection drug use; no stigmata of active injection 2. Left knee pain and effusion, improved, could be immune complex mediated due to endocarditis 3. Hepatitis C, chronic 4. tricuspid regurgitation Plan: 1. vancomycin goal tr 15-20 day 09/28 (since negative BC). weekly cbc, cmp, crp , vanco trough. Echo in 3 weeks. Discussed with Brian Scott CORE FINISHER
[2017-02-24] MEDS: Nicotine PATCH 21 MG/24 HR* PATCH TRANSDERM SCH (12:59)
[2017-02-24 17:52] VITALS: BP 127/71
== END 2017-02-24 16:50 | DRG 193 ==
LOC: ED 13:45 → MED 17:18 → OBSVTOIN 02-18 07:50
PROVIDERS: ADMIT Internal Medicine; ATTEND Internal Medicine
PROC: 02HV33Z Insertion of Infusion Device into Superior Vena Cava, Percutaneous Approach (ICD-10-PCS; principal; 2017-02-24)
DX: I33.0 Acute and subacute infective endocarditis (principal); R78.81 Bacteremia; I11.0 Hypertensive heart disease with heart failure; I50.9 Heart failure, unspecified; I70.1 Atherosclerosis of renal artery; J45.909 Unspecified asthma, uncomplicated; F17.210 Nicotine dependence, cigarettes, uncomplicated; R40.2412 Glasgow coma scale score 13-15, at arrival to emergency department; B95.62 Methicillin resistant Staphylococcus aureus infection as the cause of diseases classified elsewhere; I07.1 Rheumatic tricuspid insufficiency; M25.462 Effusion, left knee; B18.2 Chronic viral hepatitis C; M25.562 Pain in left knee; Z98.52 Vasectomy status; Z80.1 Family history of malignant neoplasm of trachea, bronchus and lung; Z82.49 Family history of ischemic heart disease and other diseases of the circulatory system
CPT/HCPCS: 36415; 70450; 71010; 80048; 80053; 80202; 80307; 81003; 81015; 82565; 83605; 83880; 84145; 84520; 85025; 85384; 85610; 85652; 85730; 86140; 86618; 87040; 87077; 87150; 87186; 87205; 93005; 93306; A9270-GY; C1751; G0378; J0696; J1644; J1885; J3370

== ENCOUNTER 2017-09-14 10:06 | Emergency (ER) | payer OTHER ==
--- NOTE | 2017-09-14 11:39 | UC ---
UC General HPI - HPI Summary HPI Summary: Pt presents with 2 days of nausea and mild epigastric discomfort. He has a decreased appetite, but has been drinking fluids and eating without vomiting. This morning he tells me that he felt like he was warm and called it a "hot flash" associated with mild nausea. He mentions that about 8 months ago he was hospitalized with endocarditis and since that time he has been very anxious that any symptoms he has could be his endocarditis returning. He denies fever, chills, headache, dizziness, cough, SOB, chest pain/palpitations, abdominal pain other than mentioned above, vomiting, diarrhea, or constipation. - History of Current Complaint Chief Complaint: UCGeneralIllness Stated Complaint: HOT FLASHES Time Seen by Provider: 09/14/17 11:01 Hx Obtained From: Patient Pain Intensity: 0 - Allergy/Home Medications Allergies/Adverse Reactions: Allergies Allergy/AdvReac Type Severity Reaction Status Date / Time No Known Allergies Allergy Verified 02/17/17 15:16 PMH/Surg Hx/FS Hx/Imm Hx Cardiovascular History: Other - Endocarditis Other Cardiovascular History: Endocarditis Other History Of: Negative For: Hepatitis C - unknown for pt, with hep C - Surgical History Surgical History: Yes Surgery Procedure, Year, and Place: 2013 vasectomy - Family History Known Family History: Positive: Cardiac Disease - Social History Alcohol Use: Rare Substance Use Type: None Substance Use Comment - Amount & Last Used: last use of heroin may 01, 2016 Smoking Status (MU): Heavy Every Day Tobacco Smoker Type: Cigarettes Amount Used/How Often: 1 ppd Length of Time of Smoking/Using Tobacco: 13 years Have You Smoked in the Last Year: Yes When Did the Patient Quit Smoking/Using Tobacco: 2 weeks ago Household Exposure Type: Cigarettes - Immunization History Most Recent Influenza Vaccination: NEVER Most Recent Pneumonia Vaccination: NEVER Review of Systems Constitutional: Negative Skin: Negative Eyes: Negative ENT: Negative Respiratory: Negative Cardiovascular: Negative Gastrointestinal: Abdominal Pain - Epigastric, Nausea Genitourinary: Negative Motor: Negative Neurovascular: Negative Musculoskeletal: Negative Neurological: Negative Psychological: Negative All Other Systems Reviewed And Are Negative: Yes Physical Exam Triage Information Reviewed: Yes Appearance: Well-Appearing, No Pain Distress, Well-Nourished Vital Signs: Initial Vital Signs Temp 98.7 F 09/14/17 10:14 Pulse 95 09/14/17 10:14 Resp 16 09/14/17 10:14 BP 120/78 09/14/17 10:14 Pulse Ox 97 09/14/17 10:14 Vital Signs Reviewed: Yes Eyes: Positive: Conjunctiva Clear, Other: - EOMI. PERRLA. No Maxwell's spots. Negative: Conjunctiva Inflamed, Discharge ENT: Positive: Hearing grossly normal, Pharynx normal, TMs normal, Uvula midline. Negative: Pharyngeal erythema, Nasal congestion, Nasal drainage, TM bulging, TM dull, TM red, Tonsillar swelling, Tonsillar exudate, Hoarse voice, Sinus tenderness Neck: Positive: Supple, Nontender, No Lymphadenopathy Respiratory: Positive: Lungs clear, Normal breath sounds, No respiratory distress, No accessory muscle use Cardiovascular: Positive: RRR, No Murmur, Pulses Normal Abdomen Description: Positive: Nontender, No Organomegaly, Soft. Negative: CVA Tenderness (R), CVA Tenderness (L), Distended, Guarding, McBurney's Point Tenderness Bowel Sounds: Positive: Present Musculoskeletal: Positive: Strength Intact - B/L UEs and LEs, ROM Intact - B/L UEs and LEs Neurological: Positive: Alert, Other: - A&Ox3. 3 word recall, remote, recent memory, ability to follow 2-step directions, and attention intact. CN II XII grossly intact. [id number] are intact. Gait with normal base. Romberg: maintains balance, no pronator drift. Normal speech. No facial drooping. Psychological: Positive: Age Appropriate Behavior Skin: Positive: Other - No splinter hemorrhage or Osler's nodes appreciated. Negative: rashes, significant lesion(s) Re-Evaluation - Re-Evaluation First Eval Re-Evaluation Time: 12:53 Change: Improved Comment: Pt reports feeling improved. Epigastric discomfort is gone and he feels overall "better" s/p pepcid and fluids. Course/Dx - Course Course Of Treatment: POC flu negative. EKG NSR rate [address] Rodriguez. Early repol in V1 and V2. Pt was given IVF and pepcid and reported feeling significantly better. His epigastric discomfort was gone and he felt his nausea was improved. Given this improvement and lack of other symptoms - will treat as if gastritis/GERD and rx for zofran and zantac. Advised to keep with fluids and advance diet as tolerated. Go to ED if symptoms persist or worsen. - Differential Dx - Multi-Symptom Provider Diagnoses: Epigastric pain. Nausea Discharge - Discharge Plan Condition: Stable Disposition: HOME Prescriptions: Ondansetron ODT TAB* [Zofran 4 MG Odt TAB*] 4 mg PO Q8H PRN #9 tab.odt PRN Reason: Nausea raNITIdine HCl [Zantac] 150 mg PO DAILY #14 tablet Patient Education Materials: Dehydration (ED), Gastroenteritis (ED) Forms: *Work Release Referrals: Yaw Bullock MD [Primary Care Provider] - Additional Instructions: If you develop a fever, shortness of breath, chest pain, new or worsening symptoms - please call your PCP or go to the ED.
[2017-09-14] MEDS ORDERED: NS 0.9% 1000 ML* 1,000 ML IV ONE (11:40)
[2017-09-14] MEDS ORDERED: Famotidine IV* 10 MG/ML 2 ML (20 mg) IV SLOW PU ONE (11:42)
[2017-09-14 12:49] VITALS: BP 123/73
== END 2017-09-14 13:14 | disposition home or self-care (01) ==
LOC: UCEAST 10:06
DX: R10.13 Epigastric pain (principal); R11.0 Nausea; I38 Endocarditis, valve unspecified; F17.210 Nicotine dependence, cigarettes, uncomplicated
CPT/HCPCS: 87502; 93005; 96360; 96365; 99212; G0463

== ENCOUNTER 2018-07-22 11:42 | Emergency (ER) | payer OTHER ==
[2018-07-22 11:49] VITALS: BP 124/76
--- NOTE | 2018-07-22 12:15 | UC ---
Complaint Male HPI - HPI Summary HPI Summary: 2 DAYS OF RIGHT TESTICULAR PAIN AND SWELLING. HAD SOME DYSURIA AT [facility] THAT SEEMS TO HAVE IMPROVED. DENIES ANY FEVER, NAUSEA/VOMITING. IS IN A MONOGAMOUS SEXUAL RELATIONSHIP WITH HIS . HE IS NOT CONCERNED ABOUT STDS. NO PENILE DISCHARGE. - History of Current Complaint Chief Complaint: UCGU Stated Complaint: TESTICLE PAIN Time Seen by Provider: 07/22/18 12:04 Hx Obtained From: Patient Onset/Duration: Gradual Onset, Lasting Days, Still Present Timing: Constant Severity Initially: Moderate Severity Currently: Moderate Pain Intensity: 8 Pain Scale Used: 0-10 Numeric Location: Testicle - RIGHT Character: Sharp Aggravating Factor(s): Palpation Alleviating Factor(s): Nothing Associated Signs And Symptoms: Positive: Dysuria. Negative: Fever, Nausea, Penile Swelling, Penile Discharge - Allergies/Home Medications Allergies/Adverse Reactions: Allergies Allergy/AdvReac Type Severity Reaction Status Date / Time No Known Allergies Allergy Verified 07/22/18 11:49 Home Medications: Home Medications NK [No Home Medications Reported] 07/22/18 [History Confirmed 07/22/18] PMH/Surg Hx/FS Hx/Imm Hx Previously Healthy: Yes Other History Of: Negative For: Hepatitis C - unknown for pt, with hep C - Surgical History Surgical History: Yes Surgery Procedure, Year, and Place: 2012 vasectomy - Family History Known Family History: Positive: Cardiac Disease - Social History Alcohol Use: Rare Substance Use Type: None Substance Use Comment - Amount & Last Used: last use of heroin may 01, 2016 Smoking Status (MU): Light Every Day Tobacco Smoker Type: Cigarettes Amount Used/How Often: 1 ppd Length of Time of Smoking/Using Tobacco: 13 years Have You Smoked in the Last Year: Yes When Did the Patient Quit Smoking/Using Tobacco: 2 weeks ago Household Exposure Type: Cigarettes - Immunization History Most Recent Influenza Vaccination: NEVER Most Recent Pneumonia Vaccination: NEVER Review of Systems All Other Systems Reviewed And Are Negative: Yes Constitutional: Positive: Negative Respiratory: Positive: Negative Cardiovascular: Positive: Negative Gastrointestinal: Positive: Abdominal Pain Genitourinary: Positive: Dysuria, Other - RIGHT TESTICULAR PAIN, SWELLING Physical Exam Triage Information Reviewed: Yes Appearance: Well-Appearing, Well-Nourished, Pain Distress - WITH PALPATION OF RIGHT TESTICLE Vital Signs: Initial Vital Signs Temp 98 F 07/22/18 11:46 Pulse 77 07/22/18 11:46 Resp 16 07/22/18 11:46 BP 124/76 07/22/18 11:46 Pulse Ox 100 07/22/18 11:46 Laboratory Tests 07/22/18 12:06 POC Urine Color Yellow POC Urine Clarity Cloudy POC Urine pH 7.0 POC Ur Specif Pimento 1.020 POC Urine Protein Negative POC Ur Glucose (UA) Negative POC Urine Ketones Negative POC Urine Blood Negative POC Urine Nitrite Negative POC Urine Bilirubin Negative POC Urine Urobilinogen 1.0 POC U Leukocyte Esteras Negative Vital Signs Reviewed: Yes Eyes: Positive: Conjunctiva Clear ENT: Positive: Hearing grossly normal Neck: Positive: Supple Respiratory: Positive: No respiratory distress, No accessory muscle use Cardiovascular: Positive: Pulses Normal Abdomen Description: Positive: Soft, Other: - RLQ PAIN. NO REBOUND OR RIGIDITY. Negative: CVA Tenderness (R), CVA Tenderness (L), Distended, Guarding Male Genital Exam: Positive: No Hernia, Epididymal Tenderness, Erythema, Testicular Tenderness (R) - RIGHT TESTICLE SWOLLEN AND TENDER.. Negative: Inguinal Tenderness, Urethral Discharge Musculoskeletal: Positive: No Edema Neurological: Positive: Alert Psychological: Positive: Age Appropriate Behavior Skin: Negative: Rashes Complaint Male Course/Dx - Course Course Of Treatment: PT WITH RIGHT TESTICULAR PAIN AND SWELLING. URINE DIP UNREMARKABLE. NO ULTRASOUND AVAILABLE IN TODAY. SEND TO ED FOR FURTHER EVALUATION. - Differential Dx/Diagnosis Provider Diagnosis: Right testicular pain Discharge - Sign-Out/Discharge Documenting (check all that apply): Patient Departure All imaging exams completed and their final reports reviewed: No Studies - Discharge Plan Condition: Stable Disposition: HOME Patient Education Materials: Testicle Pain (ED) Referrals: Yaw Bullock MD [Primary Care Provider] - If Needed Additional Instructions: URINE TEST TODAY UNREMARKABLE. GO DIRECTLY TO [facility] ED FROM HERE FOR FURTHER EVALUATION OF YOUR RIGHT TESTICULAR PAIN AND SWELLING. YOU HAVE DECLINED TRANSFER TO THE ED BY AMBULANCE. BE ADVISED THAT BY NOT TRAVELING IN A MONITORED SETTING YOU COULD BE RISKING WORSENING OF YOUR CONDITION THAT COULD POSE A THREAT TO YOUR LIFE, HEALTH AND MEDICAL SAFETY. - Billing Disposition and Condition Condition: STABLE Disposition: Home
== END 2018-07-22 12:18 | disposition home or self-care (01) ==
LOC: UCEAST 11:42
DX: N50.811 Right testicular pain (principal); N50.89 Other specified disorders of the male genital organs; R30.0 Dysuria; F17.210 Nicotine dependence, cigarettes, uncomplicated
CPT/HCPCS: 81003; 99212; G0463

== ENCOUNTER 2018-07-22 12:37 | Emergency (ER) | payer MEDICAID, OTHER ==
[2018-07-22] MEDS ORDERED: Naproxen TAB* 250 MG PO ONE (12:49)
--- NOTE | 2018-07-22 13:03 | ED ---
GI/ HPI - HPI Summary HPI Summary: This patient is a 32 year old M presenting to [facility] with a chief complaint of right testicular pain and swelling since 2 days ago. The patient rates the pain 10/10 in severity. Patient reports dysuria (dull pain, 2 nights ago). Patient denies trauma, fever, lesions on the penis, discharge, and any other health issues. He denies having any new sexual contact or having anal intercourse recently. - History of Current Complaint Chief Complaint: EDUrogenitalProblems Time Seen by Provider: 07/22/18 12:49 Stated Complaint: RIGHT TESTICULAR SWELLING Hx Obtained From: Patient Onset/Duration: Started Days Ago - 2 days ago, Still Present Timing: Constant Current Severity: Severe Pain Intensity: 10 Additional Locations for Males: Testicles - Right testicle Associated Signs and Symptoms: Positive: Dysuria - dull pain 2 nights ago, Other : - Denies any other health issues. Negative: Discharge, Fever, New Sexual Partner Additional Signs & Symptoms: Negative: Lesions - Additional Pertinent History Primary Care Physician: JENNIFER - Allergy/Home Medications Allergies/Adverse Reactions: Allergies Allergy/AdvReac Type Severity Reaction Status Date / Time No Known Allergies Allergy Verified 07/22/18 12:44 PMH/Surg Hx/FS Hx/Imm Hx Endocrine/Hematology History: Denies: Hx Diabetes, Hx Thyroid Disease Cardiovascular History: Reports: Hx Congestive Heart Failure, Hx Hypertension - at times it is elevated Respiratory History: Reports: Hx Asthma - as a child Denies: Hx Chronic Obstructive Pulmonary Disease (COPD) GI History: Denies: Hx Ulcer History: Reports: Other Problems/Disorders - Renal artery stenosis Denies: Hx Renal Disease Sensory History: Denies: Hx Contacts or Glasses, Hx Hearing Aid Opthamlomology History: Denies: Hx Contacts or Glasses - Surgical History Surgery Procedure, Year, and Place: 2013 vasectomy Infectious Disease History: Yes Infectious Disease History: Denies: Hx Clostridium Difficile, Hx Hepatitis, Hx Human Immunodeficiency Virus (HIV), Hx of Known/Suspected MRSA, Hx Shingles, Hx Tuberculosis, Hx Known/ Suspected VRE, Hx Known/Suspected VRSA, History Other Infectious Disease, Traveled Outside the [place] in Last 30 Days - Family History Known Family History: Positive: Cardiac Disease - Social History 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 Denies trauma to the site. lesions on the penis, new sexual contacts. Negative: discharge All Other Systems Reviewed And Are Negative: Yes Physical Exam - Summary Physical Exam Summary: Appearance: Well appearing, no pain distress Skin: warm, dry, reflects adequate perfusion Head/face: normal Eyes: EOMI, ЮЛИЯ ENT: mucous membranes moist Neck: supple, non-tender Respiratory: CTA, breath sounds present Cardiovascular: RRR, pulses symmetrical Abdomen: non-tender, soft Bowel Sounds: present Musculoskeletal: normal, strength/ROM intact Neuro: normal, sensory motor intact, A&Ox3 : Exquisitely tender at the enlarged right testicle and epididymis. Lymphadenopathy on the affected right side. Normal cremaster reflex on the left , a little diminished cremaster reflex on the right. Pain with testicular lift on the right. No hernia. Triage Information Reviewed: Yes Vital Signs On Initial Exam: Initial Vitals Temp Pulse Resp BP Pulse Ox 98.1 F 73 16 127/74 98 07/22/18 12:45 07/22/18 12:45 07/22/18 12:45 07/22/18 12:45 07/22/18 12:45 Vital Signs Reviewed: Yes Diagnostics - Vital Signs Vital Signs Temp Pulse Resp BP Pulse Ox 07/22/18 12:45 98.1 F 73 16 127/74 98 - Laboratory Lab Statement: Any lab studies that have been ordered have been reviewed, and results considered in the medical decision making process. - Ultrasound No standard instances Ultrasound Interpretation Completed By: Radiologist Summary of Ultrasound Findings: 14:41. Testicular US. Enlarged right epididymis with hypervascularity of the right testicle and. right epididymis consistent with epididymoorchitis on the right. ED Physician has reviewed this imaging report. GIGU Course/Dx - Course Course Of Treatment: Nurse's note reviewed. Sexually active with single partner , no anal intercourse. No penile lesions or discharge. Tender in the right testicle and epididymis. Adjacent lymphadenopathy. Ultrasound shows inflammation of epididymitis and orchitis. Treated with oral Levaquin here. Close follow-up with primary care physician, NSAIDs and tramadol for discomfort. GC/chlamydia testing was performed. - Diagnoses Differential Diagnoses - Male: Other - Epididymitis, orchitis, LGV, testicular torsion Provider Diagnoses: Epididymo-orchitis Discharge - Sign-Out/Discharge Documenting (check all that apply): Patient Departure - D/C - Discharge Plan Condition: Improved Disposition: HOME Prescriptions: Levofloxacin TAB* [Levaquin TAB*] 500 mg PO DAILY #9 tab Naproxen [Naproxen 250 mg tab] 250 mg PO BID PRN #14 tablet PRN Reason: Pain traMADol TAB* [Ultram*] 50 mg PO Q8H PRN #10 tab MDD 3 PRN Reason: more severe pain Patient Education Materials: Epididymo-Orchitis (ED) Referrals: Yaw Bullock MD [Primary Care Provider] - Additional Instructions: Tightfitting underwear, ice to the area. Medications as prescribed. Ejaculation may help. Return with fever, uncontrolled pain, worse, new symptoms or other concerns as discussed. Call Tuesday to schedule prompt follow- up with your - Billing Disposition and Condition Condition: IMPROVED Disposition: Home - Attestation Statements Document Initiated by Scribe: Yes Documenting Scribe: Elvis Mayo Provider For Whom Scribe is Documenting (Include Credential): Jose Mercado MD Scribe Attestation: Elvis Rivera, scribed for Jose Mercado MD on 07/22/18 at 1456. Scribe Documentation Reviewed: Yes Provider Attestation: The documentation as recorded by the Elvis lombardo accurately reflects the service I personally performed and the decisions made by , Jose Mercado MD Status of Scribe Document: Viewed
[2018-07-22] MEDS ORDERED: Ciprofloxacin TAB* 250 MG PO ONE (14:30)
[2018-07-22] MEDS ORDERED: Levofloxacin TAB* 500 MG PO ONE (14:37)
[2018-07-22 14:44] VITALS: BP 128/81
== END 2018-07-22 14:42 | disposition home or self-care (01) ==
LOC: ED 12:37
DX: N45.3 Epididymo-orchitis (principal); I50.9 Heart failure, unspecified; I10 Essential (primary) hypertension; F17.210 Nicotine dependence, cigarettes, uncomplicated
CPT/HCPCS: 76870; 87491; 87591; 99282; A9270-GY

== ENCOUNTER 2019-02-18 16:54 | Emergency (ER) | payer OTHER ==
[2019-02-18] MEDS ORDERED: Acetaminophen TAB* 325 MG PO ONE (18:10)
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
[2019-02-18 19:19] VITALS: BP 153/114
== END 2019-02-18 19:18 | disposition home or self-care (01) ==
LOC: ED 16:54
DX: S01.512A Laceration without foreign body of oral cavity, initial encounter (principal); S00.93XA Contusion of unspecified part of head, initial encounter; Y04.2XXA Assault by strike against or bumped into by another person, initial encounter; Y92.9 Unspecified place or not applicable; I50.9 Heart failure, unspecified; I11.0 Hypertensive heart disease with heart failure; F17.210 Nicotine dependence, cigarettes, uncomplicated
CPT/HCPCS: 70450; 99283; A9270-GY

== ENCOUNTER 2019-09-27 17:22 | Emergency (ER) | payer OTHER ==
[2019-09-27 17:46] VITALS: BP 126/84
--- NOTE | 2019-09-27 17:50 | UC ---
Dental HPI - HPI Summary HPI Summary: 33 yo male presents with dental pain. He tells me that he has not seen a dentist since age 8. He has a fractured left upper wisdom tooth for many years and has been becoming more painful over the last few months. Has intermittent pain and swelling to tooth and gum. He scheduled an appt with a dentist for this tuesday, but they requested he be placed on anbx prior to visit in case dental work was needed. He takes tylenol for the pain with good relief. He is eating and drinking well. Denies fever. - History of Current Complaint Chief Complaint: UCDentalProblem Stated Complaint: DENTAL PAIN Time Seen by Provider: 09/27/19 17:49 Hx Obtained From: Patient Onset/Duration: Gradual Onset Severity: Mild Pain Intensity: 2 Pain Scale Used: 0-10 Numeric - Allergies/Home Medications Allergies/Adverse Reactions: Allergies Allergy/AdvReac Type Severity Reaction Status Date / Time No Known Allergies Allergy Verified 09/27/19 17:46 Home Medications: Home Medications Divalproex ER TAB(*) [Depakote ER TAB(*)] 125 mg PO BID 09/27/19 [History Confirmed 09/27/19] Penicillin VK 500 MG TAB(NF) [Penicillin VK 500 mg Tab] 500 mg PO QID 7 Days # 28 tab 09/27/19 [Rx] PMH/Surg Hx/FS Hx/Imm Hx - Additional Past Medical History Additional PMH: Hep C Neurological History: Seizures Other History Of: Negative For: Hepatitis C - unknown for pt, with hep C - Surgical History Surgical History: Yes Surgery Procedure, Year, and Place: 2013 vasectomy - Family History Known Family History: Positive: Cardiac Disease - Social History Lives: With Family Alcohol Use: Occasionally Substance Use Type: Marijuana Substance Use Comment - Amount & Last Used: last use of heroin may 01, 2016, methamphetamine 2 days ago Smoking Status (MU): Light Every Day Tobacco Smoker Type: Cigarettes Amount Used/How Often: 1 ppd Length of Time of Smoking/Using Tobacco: 13 years Have You Smoked in the Last Year: Yes When Did the Patient Quit Smoking/Using Tobacco: 2 weeks ago Household Exposure Type: Cigarettes - Immunization History Most Recent Influenza Vaccination: NEVER Most Recent Pneumonia Vaccination: NEVER Review of Systems All Other Systems Reviewed And Are Negative: No Constitutional: Positive: Negative Skin: Positive: Negative Eyes: Positive: Negative ENT: Positive: Dental Pain Respiratory: Positive: Negative Cardiovascular: Positive: Negative Gastrointestinal: Positive: Negative Neurological/Mental Status: Positive: Negative Psychological: Positive: Negative Physical Exam - Summary Physical Exam Summary: GENERAL: NAD. WDWN. No pain distress. SKIN: No rashes, sores, lesions, or open wounds. HEENT: Head: AT/NC Nose: Nasal mucosa pink and moist. NTTP maxillary and frontal sinus. Throat: Posterior oropharynx without exudates, erythema, or tonsillar enlargement. Uvula midline. NECK: Supple. Nontender. No lymphadenopathy. CHEST: CTAB. No r/r/w. No accessory muscle use. Breathing comfortably and in no distress. CV: RRR. Pulses intact. Cap refill <2seconds NEURO: Alert. PSYCH: Age appropriate behavior. Triage Information Reviewed: Yes Vital Signs: Initial Vital Signs Temp 99.6 F 09/27/19 17:42 Pulse 66 09/27/19 17:42 Resp 16 09/27/19 17:42 BP 126/84 09/27/19 17:42 Pulse Ox 98 09/27/19 17:42 Vital Signs Reviewed: Yes Dental: Positive: Percussion Tenderness @ - Tooth #16, Gross Decay/Caries @ - throughout, Dental Fracture @ - Tooth #16, Cellulitis @ - Tooth #16. Negative: Abscess @, Cervical Lymphadenopathy, Bleeding Dental Complaint Course/Dx - Course Course Of Treatment: Tooth #16 cellulitis and pain. - Differential Dx/Diagnosis Provider Diagnosis: Toothache Discharge ED - Sign-Out/Discharge Documenting (check all that apply): Patient Departure All imaging exams completed and their final reports reviewed: No Studies - Discharge Plan Condition: Stable Disposition: HOME Prescriptions: Penicillin VK 500 MG TAB(NF) [Penicillin VK 500 mg Tab] 500 mg PO QID 7 Days # 28 tab Patient Education Materials: Dental Abscess (ED) Referrals: Daina Christianson MD [Primary Care Provider] - Additional Instructions: If you develop a fever, shortness of breath, chest pain, new or worsening symptoms - please call your PCP or go to the ED immediately. Keep your appointment with your dentist for tuesday - Billing Disposition and Condition Condition: STABLE Disposition: Home
== END 2019-09-27 18:09 | disposition home or self-care (01) ==
LOC: UCEAST 17:22
DX: K08.89 Other specified disorders of teeth and supporting structures (principal); F17.210 Nicotine dependence, cigarettes, uncomplicated
CPT/HCPCS: 99212; G0463